=== PATIENT | male | born 1945 | race Caucasian/White ===

== ENCOUNTER 2021-06-13 19:11 | Emergency (ER) | payer MEDICARE ==
[~2021-06-13] VITALS: Ht 190.5 cm; Wt 91.9 kg
--- NOTE | 2021-06-13 19:24 | PHYS DOC ---
Adult General Chief Complaint Chief Complaint: URINARY RETENTION HPI HPI Patient is a 75-year-old male who presents with a chief complaint of combination urinary retention and hematuria. States that he had a cystoscopy today in his urologist office to evaluate his bladder as his prostate is also enlarged. States that he got home at about 4 PM, was able to urinate and there was some blood in there. States that after that urination he feels the urge to urinate and is having suprapubic pain, 6 out of 10. States that he called his urologist and was directed to the emergency department for a Angel catheter insertion. Review of Systems Review of Systems Review of systems otherwise unremarkable except noted in HPI Physical Exam Physical Exam Constitutional: Well developed, well nourished, no acute distress, non-toxic appearance. [] HENT: Normocephalic, atraumatic, Eyes: conjunctiva normal, no discharge. [] Neck: Normal range of motion, no tenderness, supple, no stridor. [] Cardiovascular:Heart rate regular rhythm, no murmur [] Lungs & Thorax: Bilateral breath sounds clear to auscultation [] Abdomen: soft, no tenderness, no masses, no pulsatile masses. : [] Skin: Warm, dry, no erythema, no rash. [] Back: no CVA tenderness. [] Extremities: No tenderness, no cyanosis, no clubbing, ROM intact, no edema. [] Neurologic: Alert and oriented X 3, normal motor function, normal sensory function, no focal deficits noted. [] Psychologic: Affect normal, judgement normal, mood normal. [] EKG EKG [] Radiology/Procedures Radiology/Procedures [] Heart Score C/O Chest Pain: No Risk Factors: Risk Factors: DM, Current or recent (<one month) smoker, HTN, HLP, family history of CAD, obesity. Risk Scores: Risk Factors: DM, Current or recent (<one month) smoker, HTN, HLP, family history of CAD, obesity. Course & Med Decision Making Course & Med Decision Making Patient is a 75-year-old male who presents with a chief complaint of combination urinary retention and hematuria Vital signs notable for sinus bradycardia. Physical exam noted above. Given pain medication. Obvious hematuria. No urinalysis obtained as he just had a procedure today and with skew results. Patient states he did not have a urinary tract infection before the procedure. Angel catheter placed in significant amounts of urine/hematuria obtained. Patient continued to make urine. Hemoglobin not concerning. Patient not on blood thinners. Discussed all findings with family. Advised to call urologist in the morning and set up an immediate follow-up for reevaluation. Gave return precautions to the ED. Family grateful, verbalized understanding and agreed with plan of discharge. Dragon Disclaimer Dragon Disclaimer This electronic medical record was generated, in whole or in part, using a voice recognition dictation system. Departure Departure: Impression: Primary Impression: Urinary retention Additional Impression: Hematuria Disposition: HOME / SELF CARE / HOMELESS Condition: IMPROVED Referrals: SHAUNA DELA CRUZ MD (PCP) Patient Instructions: Hematuria, Adult, Urinary Retention, Acute, Male Additional Instructions: Thank you for coming into the emergency department tonight and allowing us to take care of you. Please read all the attached information above. A Angel catheter was placed to allow you to urinate and decrease the chance of kidney damage. You may continue to see some blood in your catheter however as long as you are able to urinate in the bag is filling that is reassuring. Please call your urologist back in the morning first thing to update on ED visit and set up a follow-up as soon as possible, tomorrow preferably for reevaluation and need for continued use of your Angel catheter. Please come back to the emergency department immediately with new or concerning symptoms as discussed. Problem Qualifiers LAN GAINES MD Jun 13, 2021 19:23
[2021-06-13 20:11] LABS: HEMATOCRIT 35.4 % (39.0-53.0); HEMOGLOBIN 11.8 g/dL (13.0-17.5); RED BLOOD COUNT 3.79 x10^6/uL (4.30-5.70); RED CELL DISTRIBUTION WIDTH 14.9 % (11.5-14.5); WHITE BLOOD COUNT 8.9 x10^3/uL (4.0-11.0)
[2021-06-13] MEDS: oxyCODONE/APAP 5/325 1 TAB TABLET PO ONE (20:18)
[2021-06-13 21:25] VITALS: BP 126/78
== END 2021-06-13 21:30 | disposition home or self-care (01) ==
LOC: ER 19:11
DX: R33.9 Retention of urine, unspecified (principal); R31.9 Hematuria, unspecified; R10.30 Lower abdominal pain, unspecified
CPT/HCPCS: 36415; 51702; 85027; 99284-25

== ENCOUNTER 2021-06-14 10:03 | Emergency (ER) | payer MEDICARE ==
[~2021-06-14] VITALS: Ht 190.5 cm; Wt 91.9 kg
--- NOTE | 2021-06-14 11:33 | PHYS DOC ---
Past History Additional Past Medical Histor: right kidney CA, enlarged prostate Past Surgical History: Cancer Surgery Alcohol Use: None General Adult EDM: Chief Complaint: BLOOD IN URINE HPI: HPI: Patient is a 75-year-old male who presents with urinary retention. Patient had a endoscopy done yesterday to look at his bladder due to blood in his urine. Patient was seen in the emergency room last night and had a Angel placed. Patient states "I woke up this morning and there was no urine in the bag". Patient states he had an appointment this morning with his urologist but did not realize that his appointment was in the [place] location. Patient was concerned about not producing urine, and was sent in by urology. Patient did have 300 MLS, bright red urine in his bag on arrival.Patient's denying pain. Review of Systems: Review of Systems: Constitutional: Denies fever or chills Eyes: Denies change in visual acuity HENT: Denies nasal congestion or sore throat Respiratory: Denies cough or shortness of breath Cardiovascular: Denies chest pain or edema GI: Denies abdominal pain, nausea, vomiting, bloody stools or diarrhea : Denies dysuria, reports blood in urine and retention Musculoskeletal: Denies back pain or joint pain Integument: Denies rash Neurologic: Denies headache, focal weakness or sensory changes Endocrine: Denies polyuria or polydipsia Lymphatic: Denies swollen glands Psychiatric: Denies depression or anxiety Allergies: Allergies: Allergies Coded Allergies Type Severity Reaction Last Updated Verified Sulfa (Sulfonamide Antibiotics) Allergy Unknown 06/14/21 Yes ampicillin Allergy Unknown 06/14/21 Yes tetracycline Allergy Unknown 06/14/21 Yes Physical Exam: PE: Constitutional: Well developed, well nourished, no acute distress, non-toxic appearance. [] HENT: Normocephalic, atraumatic, bilateral external ears normal, oropharynx moist, no oral exudates, nose normal. [] Eyes: PERRLA, EOMI, conjunctiva normal, no discharge. [] Neck: Normal range of motion, no tenderness, supple, no stridor. [] Cardiovascular:Heart rate regular rhythm, no murmur [] Lungs & Thorax: Bilateral breath sounds clear to auscultation [] Abdomen: Bowel sounds normal, soft, no tenderness, no masses, no pulsatile masses. [] Skin: Warm, dry, no erythema, no rash. [] Back: No tenderness, no CVA tenderness. [] Extremities: No tenderness, no cyanosis, no clubbing, ROM intact, no edema. [] Neurologic: Alert and oriented X 3, normal motor function, normal sensory function, no focal deficits noted. [] Psychologic: Affect normal, judgement normal, mood normal. [] Current Patient Data: Vital Signs: Vital Signs Date Time Temp Pulse Resp B/P (MAP) Pulse Ox O2 Delivery O2 Flow Rate FiO2 06/14/21 10:05 98.0 59 17 151/94 (113) 97 Room Air EKG: EKG: [] Radiology/Procedures: Radiology/Procedures: [] Heart Score: C/O Chest Pain: No Risk Factors: Risk Factors: DM, Current or recent (<one month) smoker, HTN, HLP, family history of CAD, obesity. Risk Scores: Score 0 - 3: 2.5% MACE over next 6 weeks - Discharge Home Score 4 - 6: 20.3% MACE over next 6 weeks - Admit for Clinical Observation Score 7 - 10: 72.7% MACE over next 6 weeks - Early Invasive Strategies Course & Med Decision Making: Course & Med Decision Making Pertinent Labs and Imaging studies reviewed. (See chart for details) [] 75-year-old male presents with urinary retention. Patient was seen by urology and had procedure done yesterday to evaluate her bladder due to the hematuria. Patient woke up this morning and did not have any urine in his bag. Once patient arrived he did have 300MLS of bloody urine in his leg bag. After bladder scanning the patient showed he was reattaining urine. Catheter was irrigated and some clots were removed which was most likely causing the retention. Urine has continued to drain after clots were removed. Patient's denying pain or any complaints at this time. Patient called and spoke with urologist office and has an appointment for Friday. Patient given return precautions. and patient are both okay with discharge plan. Patient is hemodynamically stable upon disposition. Dragon Disclaimer: Dragon Disclaimer: This electronic medical record was generated, in whole or in part, using a voice recognition dictation system. Departure Departure: Impression: Primary Impression: Urinary retention Disposition: HOME / SELF CARE / HOMELESS Condition: STABLE Referrals: SHAUNA DELA CRUZ MD (PCP) Patient Instructions: Urinary Retention, Acute, Male, [id number] Additional Instructions: You are seen in the emergency room for urinary retention. Your Angel was irrigated which remove the clots that were blocking the urine. Please keep your follow-up appointment with your urologist for further evaluation. Return to the emergency room if you have worsening symptoms or concerns. EMERGENCY DEPARTMENT GENERAL DISCHARGE INSTRUCTIONS Thank you for coming to [facility] (ED) today and trusting us with you care. We trust that you had a positivie experience in our Emergency Department. If you wish to speak to the department management, you may call the director at [phone]. YOUR FOLLOW UP INSTRUCTIONS ARE FOLLOWS: 1. Do you have a private Doctor? If you do not have a private doctor, please ask for a resource list of physicians or clinics that may be able to assist you with follow up care. 2. The Emergency Physician has interpreted your x-rays. The X-Ray specialist will also review them. If there is a change in the findings, you will be notified in 48 hours when at all possible. 3. A lab test or culture has been done, your results will be reviewed and you will be notified if you need a change in treatment. ADDITIONAL INSTRUCTIONS AND INFORMATION: 1. Your care today has been supervised by a physician who is specially trained in emergency care. Many problems require more than one evaluation for a complete diagnosis and treatment. We recommend that you schedule your follow up appointment as recommended to ensure complete treatment of you illness or injury. If you are unable to obtain follow up care and continue to have a problem, or if your condition worsens, we recommend that you return to the ED. 2. We are not able to safely determine your condition over the phone nor are we able to give sound medical advice over the phone. For these safety reasons, if you call for medical advice we will ask you to come to the ED for further evaluation. 3. If you have any questions regarding these discharge instructions please call the ED at [phone]. SAFETY INFORMATION: In the interest of safety, wellness, and injury prevention; we encourage you to wear your sealbelt, if you smoke; quite smoking, and we encourage family to use a protective helmet for bicycling and other sporting events that present an increased risk for head injury. IF YOUR SYMPTOMS WORSEN OR NEW SYMPTOMS DEVELOP, OR YOU HAVE CONCERNS ABOUT YOUR CONDITION; OR IF YOUR CONDITION WORSENS WHILE YOU ARE WAITING FOR YOUR FOLLOW UP APPOINTMENT; EITHER CONTACT YOUR PRIMARY CARE DOCTOR, THE PHYSICIAN WHOSE NAME AND NUMBER YOU WERE GIVEN, OR RETURN TO THE ED IMMEDIATELY. [place] APRN Jun 14, 2021 11:33
[2021-06-14 13:10] VITALS: BP 145/83
== END 2021-06-14 13:21 | disposition home or self-care (01) ==
LOC: ER 10:27
DX: R33.9 Retention of urine, unspecified (principal); Z88.2 Allergy status to sulfonamides; Z88.1 Allergy status to other antibiotic agents
CPT/HCPCS: 99281

== ENCOUNTER 2021-06-19 06:07 | Emergency (ER) | payer MEDICARE ==
[~2021-06-19] VITALS: Ht 190.5 cm; Wt 97.3 kg
[2021-06-19 06:15] VITALS: BP 130/78
--- NOTE | 2021-06-19 06:26 | PHYS DOC ---
Past History Additional Past Medical Histor: right kidney CA, enlarged prostate Past Surgical History: Cancer Surgery Alcohol Use: None General Adult EDM: Chief Complaint: URINARY RETENTION HPI: HPI: 75 yo M PMH HTN, HLD, gout, essential tremors, right kidney CA (in remission s/p R nephrectomy) and BPH (on flomax), presents to the ED with his , (patient consents to his/her/their knowledge and involvement in pts' medical care), complains of no urine output since 2 PM yesterday after his Patino was discontinued w/ urology, Dr. Smith in [place], only "dribbles" of urine. Reports a longstanding history of urinary incontinence for months due to BPH. Patient states he had a cystoscopy on the because of this and was seen on the in the emergency department here, due to hematuria x2 days after the cystoscopy Pt required Patino placement for urinary retention likely 2/2 hematuria. Denies any current hematuria, reports his urine is "clear." Review of Systems: Review of Systems: Constitutional: Denies fever or chills Eyes: Denies change in visual acuity HENT: Denies nasal congestion or sore throat Respiratory: Denies cough or shortness of breath Cardiovascular: Denies chest pain or edema GI: Denies nausea, vomiting, bloody stools or diarrhea : Denies dysuria or flank pain Musculoskeletal: Denies back pain or joint pain or saddle anesthesia Integument: Denies rash or diaphoresis Neurologic: Denies headache, focal weakness or sensory changes Endocrine: Denies polyuria or polydipsia Lymphatic: Denies swollen glands Psychiatric: Denies depression or anxiety Allergies: Allergies: Allergies Coded Allergies Type Severity Reaction Last Updated Verified Sulfa (Sulfonamide Antibiotics) Allergy Unknown 06/14/21 Yes ampicillin Allergy Unknown 06/14/21 Yes tetracycline Allergy Unknown 06/14/21 Yes Physical Exam: PE: Constitutional: Well developed, well nourished, no acute distress, non-toxic appearance. HENT: Normocephalic, atraumatic, Eyes: EOMI, conjunctiva normal, no discharge. Neck: Normal range of motion, supple, Cardiovascular: S1/2 present, rHR -bradycardia (was 59 bpm on 06/14) Lungs & Thorax: Speaking in full sentences, bilateral equal chest rise, no tachypnea or increased work of breathing Abdomen: soft, no tenderness, obese, suprapubic fullness Skin: Warm, dry, no erythema, no rash. [] Back: No tenderness, no CVA tenderness. [] Extremities: No tenderness, no cyanosis, hands tremors at rest, both feet laterally deviated (chronic) Neurologic: Alert and oriented X 3, normal motor function, normal sensory function, no focal deficits noted. [] Psychologic: Affect normal, judgement normal, mood normal. [] EKG: EKG: [] Radiology/Procedures: Radiology/Procedures: []IMAGING REPORT Signed PATIENT: PAM BARRERA ACCOUNT: [id number] : 1945 LOCATION: ER AGE: 75 SEX: M EXAM STATUS: REG ER ORD. PHYSICIAN: ANTONIA CRABTREE DO REASON: urinary retention PROCEDURE: CT ABDOMEN PELVIS WO CONTRAST CT ABDOMEN+PELVIS WO INDICATION: urinary retention EXAM: Noncontrast CT of the abdomen and pelvis. Coronal and sagittal reformatted images were performed. PQRS compliance statement: One or more of the following individualized dose reduction techniques were utili zed for this examination: 1. Automated exposure control 2. Adjustment of the mA and/or kV according to patient size 3. Use of iterative reconstruction technique COMPARISON: None FINDINGS: No free air, free fluid, or fluid collection. Lower chest: Bilateral lower lobe subpleural opacities. Cardiomegaly. Small hiatal hernia. ABDOMEN: Liver: The noncontrast liver is homogeneous in attenuation. Gallbladder and biliary: Cholelithiasis. Normal caliber bile ducts. Spleen: Normal spleen. Pancreas: The noncontrast pancreas is homogeneous in attenuation without peripancreatic inflammatory changes. Adrenal glands: Normal adrenal glands. Kidneys and ureters: Right nephrectomy. No left hydronephrosis. Left renal inferior pole 2 cm simple cyst. GI tract: The stomach is decompressed and poorly evaluated. Normal caliber small bowel and colon. Colonic diverticulosis. Normal appendix. Vascular structures: Normal caliber abdominal aorta. Mild aortoiliac atherosclerotic disease. Lymph nodes: No lymphadenopathy in the abdomen or pelvis. PELVIS: Genitourinary system: Urinary bladder is decompressed by Patino catheter. Enlarged prostate measures 7.4 cm transverse. SKELETAL STRUCTURES AND SOFT TISSUES: Advanced lumbar spondylosis with multilevel moderate to severe spinal canal stenosis and neural foraminal narrowing. 10 mm anterolisthesis at L5-S1 due to bilateral L5 pars defect IMPRESSION: 1. Marked prostatomegaly. Urinary bladder is decompressed by Patino catheter. 2. Bilateral lower lobe subpleural opacities, which could represent subsegmental atelectasis or an infectious process. Electronically signed by: Tamia Lilly MD (06/19/2021 8:12 AM) [id number] DICTATED AND SIGNED BY: TAMIA LILLY MD DATE: 06/19/21805 CC: ANTONIA CRABTREE DO; SHAUNA DELA CRUZ MD ~MTH0 0 Heart Score: C/O Chest Pain: No Risk Factors: Risk Factors: DM, Current or recent (<one month) smoker, HTN, HLP, family history of CAD, obesity. Risk Scores: Score 0 - 3: 2.5% MACE over next 6 weeks - Discharge Home Score 4 - 6: 20.3% MACE over next 6 weeks - Admit for Clinical Observation Score 7 - 10: 72.7% MACE over next 6 weeks - Early Invasive Strategies Course & Med Decision Making: Course & Med Decision Making Pertinent Labs and Imaging studies reviewed. (See chart for details) Concern for urinary retention in the setting of BPH, is already on Flomax. Patient with no trauma, saddle anesthesia or incontinence. CT consistent with enlarged prostate, no obvious obstructive lesion, normal caliber or aorta. Urinalysis with no bacteria, RBC and blood present after patino was placed. Urine was dark with sediment/few blood clots. Pt and ask for a different urology referral, "someone closer, not so far in [place]." Patino placed in ED. Labs does show renal failure and normocytic anemia, no prior baseline comparison. Will refer to nephrology to follow kidney failure. Patient with no back pain, abdominal pain or neurologic deficits. Is calm, in no distress and HD stable. Will discharge home with strict ED return precautions were given for fever, saddle anesthesia, flulike symptoms or intractable nausea/vomiting. Encouraged urgent outpatient follow-up with PMD and urology and nephrology. Life- threatening processes were considered but are low suspicion at this time, given history, physical exam and ED workup. Pt was educated on all prescription medications and adverse effects. All patient's questions were answered and pt was stable at time of discharge. Life/limb-threatening differential includes but is not limited to, trauma, infection, nephrolithiasis, kidney disease, malignancy, obstructive uropathy, BPH, AAA/AVF/aortic dissection, or schistosomiasis. I have spoken with the patient and/or caregivers. I explained the patient's condition, diagnoses and treatment plan based on the information available to me at this time. I have answered the patient and/or caregiver's questions and addressed any concerns. The patient and/or caregivers have a good understanding of patient's diagnosis, condition and treatment plan as can be expected at this point. Vital signs have been stable. Patient's condition is stable and appropriate for discharge from the emergency department. Patient will pursue further outpatient evaluation with primary care physician or other designated or consulting physician as outlined in the discharge instructions. The patient and/or caregivers are agreeable to this plan of care and follow-up instructions have been explained in detail. The patient and/or caregivers have received these instructions in written form and have expressed an understanding of the discharge instructions. The patient and/or caregivers are aware that any significant change of condition or worsening of symptoms should prompt immediate return to this or the closest emergency department or call to 911. Ujogo Disclaimer: Ujogo Disclaimer: This electronic medical record was generated, in whole or in part, using a voice recognition dictation system. Departure Departure: Impression: Primary Impression: Urinary retention Additional Impressions: Renal insufficiency Hematuria Normocytic anemia BPH (benign prostatic hyperplasia) Disposition: HOME / SELF CARE / HOMELESS Condition: STABLE Referrals: SHAUNA DELA CRUZ MD (PCP) Follow up with your pcp in 1-2 days or [facility] [phone] OR [facility]Dr. Bliss [phone] Patient Instructions: Benign Prostatic Hyperplasia, Kidney Failure, Urinary Retention, Acute, Male Additional Instructions: FOLLOW UP WITH UROLOGY: FOR DEFINITIVE MANAGEMENT of urinary retention and benign prostatic hyperplasia [facility] [address] [place] [address] OR [facility] [address] [address] [place] [address] [place] [address] [facility] [place] [address] [place] [address] [facility] [place] [address] [place] [address] FOLLOW UP WITH NEPHROLOGY: FOR DEFINITIVE MANAGEMENT of kidney disease [facility] , [place] [address] [place] [address] EMERGENCY DEPARTMENT GENERAL DISCHARGE INSTRUCTIONS Thank you for coming to [facility] (ED) today and trusting us with you care. We trust that you had a positivie experience in our Emergency Department. If you wish to speak to the department management, you may call the director at [phone]. YOUR FOLLOW UP INSTRUCTIONS ARE FOLLOWS: 1. Do you have a private Doctor? If you do not have a private doctor, please ask for a resource list of physicians or clinics that may be able to assist you with follow up care. 2. The Emergency Physician has interpreted your x-rays. The X-Ray specialist will also review them. If there is a change in the findings, you will be notified in 48 hours when at all possible. 3. A lab test or culture has been done, your results will be reviewed and you will be notified if you need a change in treatment. ADDITIONAL INSTRUCTIONS AND INFORMATION: 1. Your care today has been supervised by a physician who is specially trained in emergency care. Many problems require more than one evaluation for a complete diagnosis and treatment. We recommend that you schedule your follow up appointment as recommended to ensure complete treatment of you illness or injury. If you are unable to obtain follow up care and continue to have a problem, or if your condition worsens, we recommend that you return to the ED. 2. We are not able to safely determine your condition over the phone nor are we able to give sound medical advice over the phone. For these safety reasons, if you call for medical advice we will ask you to come to the ED for further evaluation. 3. If you have any questions regarding these discharge instructions please call the ED at [phone]. SAFETY INFORMATION: In the interest of safety, wellness, and injury prevention; we encourage you to wear your sealbelt, if you smoke; quite smoking, and we encourage family to use a pro tective helmet for bicycling and other sporting events that present an increased risk for head injury. IF YOUR SYMPTOMS WORSEN OR NEW SYMPTOMS DEVELOP, OR YOU HAVE CONCERNS ABOUT YOUR CONDITION; OR IF YOUR CONDITION WORSENS WHILE YOU ARE WAITING FOR YOUR FOLLOW UP APPOINTMENT; EITHER CONTACT YOUR PRIMARY CARE DOCTOR, THE PHYSICIAN WHOSE NAME AND NUMBER YOU WERE GIVEN, OR RETURN TO THE ED IMMEDIATELY. [facility] DO Jun 19, 2021 06:26
[2021-06-19 07:00] LABS: BASO # 0.1 x10^3/uL (0.0-0.2); BASO % 1 % (0-3); EOS # 0.7 x10^3/uL (0.0-0.7); EOS % 9 % (0-3); HEMATOCRIT 32.1 % (39.0-53.0); HEMOGLOBIN 10.7 g/dL (13.0-17.5); LYMPH # 0.9 x10^3/uL (1.0-4.8); LYMPH % 11 % (24-48); MEAN CORPUSCULAR HEMOGLOBIN 31 pg (25-35); MEAN CORPUSCULAR HGB CONC 34 g/dL (31-37); MEAN CORPUSCULAR VOLUME 93 fL (79-100); MONO # 0.8 x10^3/uL (0.0-1.1); MONO % 11 % (0-9); NEUT # 5.3 x10^3uL (1.8-7.7); NEUT % 68 % (31-73); PLATELET COUNT 168 x10^3/uL (140-400); RED BLOOD COUNT 3.43 x10^6/uL (4.30-5.70); RED CELL DISTRIBUTION WIDTH 15.1 % (11.5-14.5); WHITE BLOOD COUNT 7.8 x10^3/uL (4.0-11.0)
[2021-06-19] MEDS ORDERED: CONTRAST GIVEN. MC PRN (07:00)
[2021-06-19] MEDS ORDERED: IOHEXOL 300 MG/ML 75 ML VIAL. IV ONE (07:00)
[2021-06-19 07:10] LABS: CALCIUM 9.2 mg/dL (8.5-10.1); CREATININE 1.9 mg/dL (0.7-1.3); GFR 34.8; POTASSIUM 4.9 mmol/L (3.5-5.1)
[2021-06-19 07:16] LABS: ALBUMIN/GLOBULIN RATIO 0.8 (1.0-1.7); TOTAL BILIRUBIN 0.4 mg/dL (0.2-1.0)
[2021-06-19 07:35] LABS: BACTERIA,URINE 0 /HPF (0-FEW); BILIRUBIN,URINE NEG (NEG); CLARITY,URINE HAZY; COLOR,URINE YELLOW; GLUCOSE,URINE NEG (NEG); NITRITE,URINE NEG (NEG); RBC,URINE >40 /HPF (0-2); SQUAMOUS EPITHELIAL CELL,UR FEW /LPF; UROBILINOGEN,URINE 0.2 mg/dL (0.2 mg/dL)
--- NOTE | 2021-06-19 08:15 | RAD ---
CT ABDOMEN+PELVIS WO INDICATION: urinary retention EXAM: Noncontrast CT of the abdomen and pelvis. Coronal and sagittal reformatted images were perform ed. PQRS compliance statement: One or more of the following individualized dose reduction techniques were utilized for this examinat ion: 1. Automated exposure control 2. Adjustment of the mA and/or kV according to patient size 3. Use of iterative reconstruction technique COMPARISON: None FINDINGS: No free air, free fluid, or fluid collection. Lower chest: Bilateral lower lobe subpleural opacities. Cardiomegaly. Small hiatal hernia. ABDOMEN: Liver: The noncontrast liver is homogeneous in attenuation. Gallbladder and biliary: Cholelithiasis. Normal caliber bile ducts. Spleen: Normal spleen. Pancreas: The noncontrast pancreas is homogeneous in attenuation without peripancreatic inflammatory changes. Adrenal glands: Normal adrenal glands. Kidneys and ureters: Right nephrectomy. No left hydronephrosis. Left renal inferior pole 2 cm simple cyst. GI tract: The stomach is decompressed and poorly evaluated. Normal caliber small bowel and colon. Col onic diverticulosis. Normal appendix. Vascular structures: Normal caliber abdominal aorta. Mild aortoiliac atherosclerotic disease. Lymph nodes: No lymphadenopathy in the abdomen or pelvis. PELVIS: Genitourinary system: Urinary bladder is decompressed by Angel catheter. Enlarged prostate measures 7 .4 cm transverse. SKELETAL STRUCTURES AND SOFT TISSUES: Advanced lumbar spondylosis with multilevel moderate to severe spinal canal stenosis and neural foraminal narrowing. 10 mm anterolisthesis at L5-S1 due to bilateral L5 pars defect IMPRESSION: 1. Marked prostatomegaly. Urinary bladder is decompressed by Angel catheter. 2. Bilateral lower lobe subpleural opacities, which could represent subsegmental atelectasis or an in fectious process. Electronically signed by: Singh Lilly MD (06/19/2021 8:12 AM) [id number]
== END 2021-06-19 09:11 | disposition home or self-care (01) ==
LOC: ER 06:07
DX: N40.1 Benign prostatic hyperplasia with lower urinary tract symptoms (principal); R33.8 Other retention of urine; N28.9 Disorder of kidney and ureter, unspecified; R31.9 Hematuria, unspecified; D64.9 Anemia, unspecified; Z88.2 Allergy status to sulfonamides; Z88.1 Allergy status to other antibiotic agents
CPT/HCPCS: 36415; 51702; 74176; 80053; 81001; 85025; 99285-25

== ENCOUNTER 2021-06-27 18:40 | Emergency (ER) | payer MEDICARE ==
[~2021-06-27] VITALS: Ht 190.5 cm; Wt 97.3 kg
--- NOTE | 2021-06-27 18:46 | PHYS DOC ---
Past History Past Medical History: CAD, CHF, UTI Additional Past Medical Histor: right kidney CA, enlarged prostate Past Surgical History: Cancer Surgery Alcohol Use: None General Adult HPI: HPI: "I am just getting more weak I can even get up to go to the bathroom..." Patient is a 75 year old MALE who presents with complaints of increased weakness and recent UTI. Patient does have a Angel for urinary retention patient normally follows Dr. Dela Cruz. Recently seen Dr. Dela Cruz and started on treatment for UTI. Patient today is grown more weak. Patient denies any falls. No history immunosuppression. No history of travel history. No specific ill contacts. Patient prior this past week has been ambulatory. Patient has been compliant with his meds for a urinary tract infection. Review of Systems: Review of Systems: Constitutional: Denies fever or chills Eyes: Denies change in visual acuity HENT: Denies nasal congestion or sore throat Respiratory: Denies cough or shortness of breath Cardiovascular: Denies chest pain or edema GI: Denies abdominal pain, nausea, vomiting, bloody stools or diarrhea : History of dysuria and Angel Musculoskeletal: Complains of generalized weakness Integument: Denies rash Neurologic: Denies headache, focal weakness or sensory changes Endocrine: Denies polyuria or polydipsia Lymphatic: Denies swollen glands Psychiatric: Denies depression or anxiety Family History: Family History: Noncontributory presentation Current Medications: Current Meds: See nursing for home meds Allergies: Allergies: Allergies Coded Allergies Type Severity Reaction Last Updated Verified Sulfa (Sulfonamide Antibiotics) Allergy Unknown 06/14/21 Yes ampicillin Allergy Unknown 06/14/21 Yes tetracycline Allergy Unknown 06/14/21 Yes Physical Exam: PE: Constitutional: Moderate acute distress, non-toxic appearance. [] HENT: Normocephalic, atraumatic, bilateral external ears normal, oropharynx moist, no oral exudates, nose normal. [] Eyes: PERRLA, EOMI, conjunctiva normal, no discharge. [] Neck: Normal range of motion, no tenderness, supple, no stridor. [] Cardiovascular: Tachycardia heart rate regular rhythm, no murmur [, PMI to the left Lungs & Thorax: Bilateral breath sounds equal apex scattered wheezes, basilar crackles bilaterally, PMI to left on auscultation [] Abdomen: Bowel sounds normal, soft, no tenderness, no masses, no pulsatile masses. Old surgery scars Skin: Warm, dry, no erythema, no rash. Poor turgor Back: No tenderness, no CVA tenderness. [] Extremities: No tenderness, no cyanosis, no clubbing, moves extremities on request, ankle edema. [] Very weak, unable to even stand and pivot. Neurologic: Alert and oriented X 3, moves extremities on request but that has had obvious weakness needs assistance and transfer to bed, has distal sensory. Decreased plantar sensation,, no focal deficits but generalized weakness. Psychologic: Affect anxious, judgement normal, mood normal. [] EKG: EKG: My interpretation EKG shows a sinus rhythm at 76 bpm prolonged [place] interval at 785 ms. Incomplete right bundle branch block. Abnormal EKG. But no findings of acute STEMI of contralateral changes. Time of EKG is 1905 hrs. [] Radiology/Procedures: Radiology/Procedures: My interpretation of chest x-ray shows acute cephalization and cardiomegaly. Arthritic changes. Bilateral lower lobe subpleural opacities small hiatal hernia. Overall impression is CHF/pulmonary edema. See formal report when available. Not currently available at time of admission and transfer. [] Heart Score: C/O Chest Pain: No HEART Score for Chest Pain: HEART Score for Chest Pain Response (Comments) Value History Moderately Suspicious 1 ECG Nonspecific Repolarizatio 1 Age > 65 2 Risk Factors 1 or 2 Risk Factors 1 Troponin < Normal Limit 0 Total 5 Risk Factors: Risk Factors: DM, Current or recent (<one month) smoker, HTN, HLP, family history of CAD, obesity. Risk Scores: Score 0 - 3: 2.5% MACE over next 6 weeks - Discharge Home Score 4 - 6: 20.3% MACE over next 6 weeks - Admit for Clinical Observation Score 7 - 10: 72.7% MACE over next 6 weeks - Early Invasive Strategies Course & Med Decision Making: Course & Med Decision Making Pertinent Labs and Imaging studies reviewed. (See chart for details) Discussed presentation, testing and tx. plan with Dr. Manuel- Transfer to [facility]- No beds at [place]- lack of nursing to open more beds. 4/1Coverage. Impression: 1. Weakness 2. Renal Insuf. 32 Bun 1.7 Creat. 3. Elevated D-dimer 2.36 4. Elevated AST 83.ALT 81, Alk Phos 148 5. Diastolic heart failure BMP 4,306 6. Recent UTI/ Hematuria- compliant with antibiotica 7. Anemia - Hgb 11.2 [] Jules Disclaimer: Jules Disclaimer: This electronic medical record was generated, in whole or in part, using a voice recognition dictation system. Departure Departure: Referrals: SHAUNA DELA CRUZ MD (PCP) KIRAN MENDIOLA MD Jun 27, 2021 18:46
[2021-06-27] MEDS ORDERED: IV RINGERS SOLUTION,LACTATED 1,000 ML IV SCH (19:00)
[2021-06-27 19:46] LABS: BASO % 1 % (0-3); EOS # 0.1 x10^3/uL (0.0-0.7); EOS % 1 % (0-3); HEMATOCRIT 33.9 % (39.0-53.0); HEMOGLOBIN 11.2 g/dL (13.0-17.5); LYMPH # 0.3 x10^3/uL (1.0-4.8); LYMPH % 5 % (24-48); MEAN CORPUSCULAR HEMOGLOBIN 31 pg (25-35); MEAN CORPUSCULAR HGB CONC 33 g/dL (31-37); MEAN CORPUSCULAR VOLUME 94 fL (79-100); MONO # 0.7 x10^3/uL (0.0-1.1); MONO % 10 % (0-9); NEUT # 5.3 x10^3uL (1.8-7.7); NEUT % 83 % (31-73); PLATELET COUNT 157 x10^3/uL (140-400); RED CELL DISTRIBUTION WIDTH 15.7 % (11.5-14.5); WHITE BLOOD COUNT 6.4 x10^3/uL (4.0-11.0)
[2021-06-27 19:55] LABS: CALCIUM 9.2 mg/dL (8.5-10.1); CREATININE 1.7 mg/dL (0.7-1.3); GFR 39.6; POTASSIUM 4.2 mmol/L (3.5-5.1)
[2021-06-27 20:08] LABS: ALBUMIN 3.2 g/dL (3.4-5.0); DIRECT BILIRUBIN 0.1 mg/dL (0.0-0.2); MAGNESIUM 1.8 mg/dL (1.8-2.4); TOTAL BILIRUBIN 0.3 mg/dL (0.2-1.0); TOTAL PROTEIN 6.9 g/dL (6.4-8.2)
[2021-06-27 20:26] LABS: BACTERIA,URINE MOD /HPF (0-FEW); BILIRUBIN,URINE NEG (NEG); CLARITY,URINE CLOUDY; COLOR,URINE YELLOW; GLUCOSE,URINE NEG (NEG); NITRITE,URINE POS (NEG); RBC,URINE >40 /HPF (0-2); SQUAMOUS EPITHELIAL CELL,UR OCC /LPF; UROBILINOGEN,URINE 0.2 mg/dL (0.2 mg/dL); YEAST,URINE PRESENT /HPF
[2021-06-27] MEDS ORDERED: ENOXAPARIN ** NOTE DOSE ** SYRINGE SQ ONE (20:45)
[2021-06-27] MEDS ORDERED: FUROSEMIDE 40 MG/4 ML VIAL IVP ONE (20:45)
[2021-06-27] MEDS ORDERED: levoFLOXacin 500 MG TABLET PO ONE (21:00)
[2021-06-27 21:30] VITALS: BP 124/63
--- NOTE | 2021-06-27 21:39 | EKG ---
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
[2021-06-27] MEDS ORDERED: oxyCODONE/APAP 5/325 1 TAB TABLET PO ONE (22:00)
--- NOTE | 2021-06-28 00:04 | RAD ---
INDICATION: Reason: dyspnea / Spl. Instructions: / History: COMPARISON: None. FINDINGS: Single view of chest obtained. Enlarged cardiomediastinal silhouette. Degenerative changes the bilateral shoulders. Mild interstitial and groundglass opacities. There is some suspected calcified granulomas. IMPRESSION: * Suspected interstitial and groundglass opacities which could be from mild edema or interstitial in filtrate. * Enlarged cardiomediastinal silhouette. Electronically signed by: Ham Casas MD (06/28/2021 12:01 AM) [id number]
== END 2021-06-27 22:15 | disposition short-term general hospital (02) ==
LOC: ER 18:40
DX: N28.9 Disorder of kidney and ureter, unspecified (principal); R79.1 Abnormal coagulation profile; R79.89 Other specified abnormal findings of blood chemistry; I50.30 Unspecified diastolic (congestive) heart failure; D64.9 Anemia, unspecified; R53.1 Weakness; I25.10 Atherosclerotic heart disease of native coronary artery without angina pectoris; Z87.440 Personal history of urinary (tract) infections; Z20.822 Contact with and (suspected) exposure to COVID-19; Z88.2 Allergy status to sulfonamides; Z88.1 Allergy status to other antibiotic agents
CPT/HCPCS: 36415; 71045; 80048; 80076; 81001; 82550; 83690; 83735; 83880; 84443; 84484; 85025; 85379; 85610; 85730; 87040; 87077; 87086; 87426; 93005; 96361; 96372; 96374; 99285; C9803; J1650; J1940; J7120; U0003

== ENCOUNTER 2021-07-03 23:18 | Emergency (ER) | payer MEDICARE ==
[~2021-07-03] VITALS: Ht 190.5 cm; Wt 97.3 kg
[2021-07-03 23:20] VITALS: BP 155/90
--- NOTE | 2021-07-04 00:04 | PHYS DOC ---
Past History Past Medical History: CAD, CHF, UTI Additional Past Medical Histor: right kidney CA, enlarged prostate (BRITTANY QUEZADA APRN) Past Surgical History: Cancer Surgery (BRITTANY QUEZADA APRN) Alcohol Use: None (BRITTANY QUEZADA APRN) General Adult EDM: Chief Complaint: URINE CATHETER PROBLEM HPI: HPI: Patient is a 75-year-old female who presents to the emergency department for possible catheter obstruction. He states that his Patino catheter has not been draining for the last 8 hours. Patient follows up with Dr. Mcgarry with urology. He has a history of right kidney cancer with a right nephrectomy, BPH. Patient's current Patino was placed on [address] [facility]. His states that he was just discharged yesterday from [facility]. Patient is reporting suprapubic tenderness. He is not currently on any antibiotics. He denies any fevers, nausea or vomiting. (BRITTANY QUEZADA APRN) Review of Systems: Review of Systems: Constitutional: See HPI GI: See HPI : See HPI (BRITTANY QUEZADA APRN) Allergies: Allergies: Allergies Coded Allergies Type Severity Reaction Last Updated Verified Sulfa (Sulfonamide Antibiotics) Allergy Unknown 06/14/21 Yes ampicillin Allergy Unknown 06/14/21 Yes tetracycline Allergy Unknown 06/14/21 Yes (BRITTANY QUEZADA APRN) Physical Exam: PE: Constitutional: Well developed, well nourished, no acute distress, non-toxic appearance. [] HENT: Normocephalic, atraumatic, bilateral external ears normal, oropharynx moist, no oral exudates, nose normal. [] Eyes: PERRL, EOMI, conjunctiva normal, no discharge. [] Neck: Normal range of motion, no stridor Cardiovascular:Heart rate regular rhythm, no murmur [] Lungs & Thorax: Bilateral breath sounds clear to auscultation [] Abdomen: Bowel sounds normal, soft, suprapubic tenderness with palpation, no masses, no pulsatile masses. [] Skin: Warm, dry, no erythema, no rash. [] : Erythema and purulent drainage noted to urethra, no blood noted at urethra Back: Normal range of motion Extremities: No tenderness, no cyanosis, no clubbing, ROM intact, no edema. [] Neurologic: Alert and oriented X 3, normal motor function, normal sensory function, no focal deficits noted. [] Psychologic: Affect normal, judgement normal, mood normal. [] (BRITTANY QUEZADA APRN) PE: Constitutional: Well developed, well nourished, no acute distress, non-toxic appearance HENT: Normocephalic, atraumatic Eyes: Conjunctiva normal, no discharge Neck: Normal range of motion, supple Lungs & Thorax: No respiratory distress, equal chest rise and fall Abdomen: Soft, no tenderness Skin: Warm, dry, no erythema, no rash Extremities: No tenderness, ROM intact, no edema Neurologic: Alert and oriented X 3, no focal deficits noted Psychologic: Affect normal, judgment normal (CORA BAUM DO) EKG: EKG: [] (BRITTANY QUEZADA APRN) Radiology/Procedures: Radiology/Procedures: [] (BRITTANY QUEZADA APRN) Heart Score: C/O Chest Pain: N/A Risk Factors: Risk Factors: DM, Current or recent (<one month) smoker, HTN, HLP, family history of CAD, obesity. Risk Scores: Score 0 - 3: 2.5% MACE over next 6 weeks - Discharge Home Score 4 - 6: 20.3% MACE over next 6 weeks - Admit for Clinical Observation Score 7 - 10: 72.7% MACE over next 6 weeks - Early Invasive Strategies (BRITTANY QUEZADA APRN) Course & Med Decision Making: Course & Med Decision Making Pertinent Labs and Imaging studies reviewed. (See chart for details) [] Patient presents to the emergency department for his Patino catheter not draining. Patient was bladder scanned and it showed 750 mils retained. There is approximately 100 cc of urine in the Patino bag. Patino was removed and a new one was placed, following placement of new patino catheter, there was urine output. Urinalysis and blood work performed as patient was noted to have purulent drainage and excoriation noted to his urethra. Triple antibiotic o intment ordered for patients penis/urethra. Patient has an appointment with Dr. Mcgarry with urology in a couple of weeks to follow up. Urinalysis and blood work pending at this time. I discussed patients case with supervising physician and he will assume patient care at this time. Care transferred at 0033. (BRITTANY QUEZADA APRN) Course & Med Decision Making 0100- Sign out received from Brittany CANO for patient with blocked patino cath. Patino cath replaced with interval drainage. UA with signs of infection. Afebrile. Empiric PO antibiotic provided. Patient stable for discharge with outpatient follow-up with PCP/urology. Discussed findings and plan with patient and spouse, who acknowledge understanding and agreement. (CORA BAUM DO) Dragon Disclaimer: Dragon Disclaimer: This electronic medical record was generated, in whole or in part, using a voice recognition dictation system. (BRITTANY QUEZADA APRN) Departure Departure: Impression: Primary Impression: Obstructed Patino catheter Qualified Codes: T83.091A - Other mechanical complication of indwelling urethral catheter, initial encounter Additional Impression: UTI (urinary tract infection) Qualified Codes: T83.511A - Infection and inflammatory reaction due to indwelling urethral catheter, initial encounter; N39.0 - Urinary tract infection, site not specified Disposition: HOME / SELF CARE / HOMELESS Condition: GOOD Referrals: SHAUNA DELA CRUZ MD (PCP) Patient Instructions: Catheter-Associated Urinary Tract Infection FAQs - BENSON, Patino Catheter Care, Adult Additional Instructions: You were seen in the emergency department for a catheter obstruction. A new catheter was placed and is functioning normally. Please follow up with Dr. Mcgarry with urology as soon as possible, I would advise you to call tomorrow to see if you can get into see him sooner than your scheduled appointment. Scripts Cephalexin (KEFLEX) 500 Mg Capsule 1 CAP PO TID for UTI for 10 Days, #30 CAP Prov: CORA BAUM DO 07/04/21 Attending Signature Attending Signature I have personally interviewed and examined the patient. All charts, labs, and imaging studies were reviewed. I agree with the PA/VALET MANAGER's findings, exam, and plan. (CORA BAUM DO) BRITTANY QUEZADA APRN Jul 04, 2021 00:04 CORA BAUM DO Jul 04, 2021 01:29
[2021-07-04 00:55] LABS: BILIRUBIN,URINE NEG (NEG); CLARITY,URINE HAZY; COLOR,URINE YELLOW; GLUCOSE,URINE NEG (NEG); NITRITE,URINE POS (NEG); RBC,URINE >40 /HPF (0-2); UROBILINOGEN,URINE 0.2 mg/dL (0.2 mg/dL)
[2021-07-04 00:56] LABS: BACTERIA,URINE FEW /HPF (0-FEW)
[2021-07-04] MEDS ORDERED: NEOMY/BACITR/POLYMYXIN OINT PACKET. TP ONE (01:00)
[2021-07-04] MEDS ORDERED: CEPH500C PO (01:26)
[2021-07-04] MEDS ORDERED: CEPHALEXIN 250 MG CAPSULE PO ONE (02:00)
== END 2021-07-04 01:40 | disposition home or self-care (01) ==
LOC: ER 23:18
DX: T83.091A Other mechanical complication of indwelling urethral catheter, initial encounter (principal); T83.511A Infection and inflammatory reaction due to indwelling urethral catheter, initial encounter; N39.0 Urinary tract infection, site not specified
CPT/HCPCS: 51702; 81001; 87077; 87086; 99284

== ENCOUNTER 2021-07-11 00:46 | Emergency (ER) | payer MEDICARE ==
[~2021-07-11] VITALS: Ht 190.5 cm; Wt 97.3 kg
[~2021-07-11 00:46] MED LIST: CEPH500C PO
[2021-07-11 00:50] VITALS: BP 146/99
--- NOTE | 2021-07-11 01:11 | PHYS DOC ---
Past History Past Medical History: CAD, CHF, UTI Additional Past Medical Histor: right kidney CA, enlarged prostate Past Surgical History: Cancer Surgery Alcohol Use: None General Adult EDM: Chief Complaint: urinary retention HPI: HPI: 75-year-old male returns the emergency room with inability to urinate. The patient was recently seen in the ER after having Angel catheter taken out and he was unable to urinate. The ER put in another Angel catheter and the patient went to the urologist today. Urologist attempted to take the catheter out today to see what would happen. The patient has been unable to urinate for the last 12 hours so he came into the ER tonight. Patient has a follow-up appointment with urology next week. He is asking that we reinstall Angel catheter. He has no other complaints this time. He is already on antibiotic for UTI. Review of Systems: Review of Systems: Constitutional: Denies fever or chills Eyes: Denies change in visual acuity HENT: Denies nasal congestion or sore throat Respiratory: Denies cough or shortness of breath Cardiovascular: Denies chest pain or edema GI: Denies abdominal pain, nausea, vomiting, bloody stools or diarrhea : Urinary retention Musculoskeletal: Denies back pain or joint pain Integument: Denies rash Neurologic: Denies headache, focal weakness or sensory changes Endocrine: Denies polyuria or polydipsia Lymphatic: Denies swollen glands Psychiatric: Denies depression or anxiety Allergies: Allergies: Allergies Coded Allergies Type Severity Reaction Last Updated Verified Sulfa (Sulfonamide Antibiotics) Allergy Unknown 06/14/21 Yes ampicillin Allergy Unknown 06/14/21 Yes tetracycline Allergy Unknown 06/14/21 Yes Physical Exam: PE: Constitutional: Well developed, well nourished, no acute distress, non-toxic appearance. [] HENT: Normocephalic, atraumatic, bilateral external ears normal, oropharynx moist, no oral exudates, nose normal. [] Eyes: PERRLA, EOMI, conjunctiva normal, no discharge. [] Neck: Normal range of motion, no tenderness, supple, no stridor. [] Cardiovascular: Heart rate regular rhythm, no murmur [] Lungs & Thorax: Bilateral breath sounds clear to auscultation [] Abdomen: Bowel sounds normal, soft, no tenderness, no masses, no pulsatile masses. [] Skin: Warm, dry, no erythema, no rash. [] Back: No tenderness, no CVA tenderness. [] Extremities: No tenderness, no cyanosis, no clubbing, ROM intact, no edema. [] Neurologic: Alert and oriented X 3, normal motor function, normal sensory function, no focal deficits noted. [] Psychologic: Affect normal, judgement normal, mood normal. : Circumcised, descended testicles, no obvious trauma or malformation. [] EKG: EKG: [] Radiology/Procedures: Radiology/Procedures: [] Heart Score: C/O Chest Pain: N/A Risk Factors: Risk Factors: DM, Current or recent (<one month) smoker, HTN, HLP, family history of CAD, obesity. Risk Scores: Score 0 - 3: 2.5% MACE over next 6 weeks - Discharge Home Score 4 - 6: 20.3% MACE over next 6 weeks - Admit for Clinical Observation Score 7 - 10: 72.7% MACE over next 6 weeks - Early Invasive Strategies Course & Med Decision Making: Course & Med Decision Making Pertinent Labs and Imaging studies reviewed. (See chart for details) The patient has not urinated in 12 hours so we will place a Angel catheter. There was 400 mL of immediate output. It was medium dark in color but no gross blood. Small amount of blood at the urethral meatus. The patient will follow up with urology as previously planned. He is stable for discharge at this time. [] Dragon Disclaimer: Dragon Disclaimer: This electronic medical record was generated, in whole or in part, using a voice recognition dictation system. Departure Departure: Impression: Primary Impression: Urinary retention Disposition: HOME / SELF CARE / HOMELESS Condition: IMPROVED Referrals: SHAUNA DELA CRUZ MD (PCP) Patient Instructions: Angel Catheter Care, Adult KRYS RITTER DO Jul 11, 2021 01:11
[2021-07-11 01:41] LABS: BACTERIA,URINE 0 /HPF (0-FEW); BILIRUBIN,URINE NEG (NEG); CLARITY,URINE CLEAR; COLOR,URINE YELLOW; GLUCOSE,URINE NEG (NEG); NITRITE,URINE NEG (NEG); RBC,URINE >40 /HPF (0-2); UROBILINOGEN,URINE 0.2 mg/dL (0.2 mg/dL)
== END 2021-07-11 01:30 | disposition home or self-care (01) ==
LOC: ER 00:46
DX: R33.9 Retention of urine, unspecified (principal); I25.10 Atherosclerotic heart disease of native coronary artery without angina pectoris; I50.9 Heart failure, unspecified; Z87.440 Personal history of urinary (tract) infections; Z88.2 Allergy status to sulfonamides; Z88.1 Allergy status to other antibiotic agents
CPT/HCPCS: 51702; 81001; 99284

== ENCOUNTER 2021-07-20 23:41 | Emergency (ER) | payer MEDICARE ==
[~2021-07-20] VITALS: Ht 190.5 cm; Wt 97.3 kg
[2021-07-20 23:50] VITALS: BP 155/99
[2021-07-20] MEDS ORDERED: LIDOCAINE 2% TOPICAL JELLY 5GM TUBE. TP ONE (23:56)
--- NOTE | 2021-07-21 00:03 | PHYS DOC ---
Past History Past Medical History: CAD, CHF, UTI Additional Past Medical Histor: right kidney CA, enlarged prostate Past Surgical History: Cancer Surgery Alcohol Use: None General Adult HPI: HPI: Patient is a 75-year-old male coming in requesting Angel catheter placement. Patient has a history of urinary retention. Saw his urologist 3 days ago and had the option of continuing his Angel catheter versus self cath. 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 Patient has been attempting to self cath twice a day but has had difficulty and has had some bleeding with it. Is currently taking antibiotics for urinary tract infection Review of Systems: Review of Systems: All other systems within normal limits except for as noted in the HPI Current Medications: Current Meds: Current Medications Medications (Trade) Dose Ordered Sig/Renzo Start Time Stop Time Status Last Admin Dose Admin Lidocaine HCl (Xylocaine 2% Topical 5gm Tube) 5 luis felipe STK-MED ONCE 07/20/21 23:56 07/20/21 23:57 DC Allergies: Allergies: Allergies Coded Allergies Type Severity Reaction Last Updated Verified Sulfa (Sulfonamide Antibiotics) Allergy Unknown 06/14/21 Yes ampicillin Allergy Unknown 06/14/21 Yes tetracycline Allergy Unknown 06/14/21 Yes Physical Exam: PE: Constitutional: Well developed, well nourished, no acute distress, non-toxic appearance. [] HENT: Normocephalic, atraumatic, bilateral external ears normal, nose normal. [] Eyes: PERRLA, conjunctiva normal, no discharge. [] Neck: No rigidity, supple, no stridor. [] Cardiovascular: Regular rate and rhythm, brisk cap refill [] Lungs & Thorax: Non labored symmetric respirations, no tachypnea or respiratory distress [] Abdomen: Soft, nondistended. Skin: Warm, dry, no erythema, no rash. [] Back: Unremarkable Extremities: No deformities, range of motion grossly intact, no lower extremity edema [] Neurologic: Alert and oriented X 3, no focal deficits noted. [] Psychologic: Affect normal, judgement normal, mood normal. [] EKG: EKG: [] Radiology/Procedures: Radiology/Procedures: [] Heart Score: C/O Chest Pain: No Risk Factors: Risk Factors: DM, Current or recent (<one month) smoker, HTN, HLP, family history of CAD, obesity. Risk Scores: Score 0 - 3: 2.5% MACE over next 6 weeks - Discharge Home Score 4 - 6: 20.3% MACE over next 6 weeks - Admit for Clinical Observation Score 7 - 10: 72.7% MACE over next 6 weeks - Early Invasive Strategies Course & Med Decision Making: Course & Med Decision Making Pertinent Labs and Imaging studies reviewed. (See chart for details) [] Dragon Disclaimer: Dragon Disclaimer: This electronic medical record was generated, in whole or in part, using a voice recognition dictation system. Departure Departure: Impression: Primary Impression: Urinary retention Disposition: HOME / SELF CARE / HOMELESS Condition: STABLE Referrals: SHAUNA DELA CRUZ MD (PCP) Patient Instructions: Angel Catheter Care, Adult LESLYE BARAJAS MD Jul 21, 2021 00:03
== END 2021-07-21 00:17 | disposition home or self-care (01) ==
LOC: ER 23:41
DX: R33.9 Retention of urine, unspecified (principal); Z88.2 Allergy status to sulfonamides; Z88.1 Allergy status to other antibiotic agents
CPT/HCPCS: 51702; 99284-25

== ENCOUNTER 2021-08-15 07:35 | Inpatient (IN) | payer MEDICARE ==
[~2021-08-15] VITALS: Ht 185.4 cm; Wt 89.6 kg
--- NOTE | 2021-08-15 07:59 | PHYS DOC ---
Past History Past Medical History: CAD, CHF, UTI Additional Past Medical Histor: right kidney CA, enlarged prostate Past Surgical History: Cancer Surgery Smoking: Non-smoker Alcohol Use: None Drug Use: None General Adult EDM: Chief Complaint: MECHANICAL FALL HPI: HPI: Patient is a 75-year-old male brought in by EMS from home for generalized weakness and multiple falls. He reports this morning he fell while trying to get up from his scooter to go to the restroom. He is supposed to stay in his scooter, is minimally mobile at baseline. He does not use an ambulatory device when he tries to transition from his scooter to move to other areas. He is not using any ambulatory device and was not holding onto anything when he fell today. EMS reports that he was lying prone on the floor when they arrived. The patient denies hitting his head, denies loss of consciousness. He denies headache. He denies dizziness. He denies chest pain, dyspnea, palpitations. He denies abdominal pain, nausea, vomiting, diarrhea, constipation. He has an indwelling Angel catheter which is draining dark urine. This was replaced within the last few days. He was recently admitted at [facility] on the [place]. He reportedly has been admitted there for prostate surgery as well as for his generalized weakness. He lives at home with his and grandson. He does not have any home health services, PT or OT services per his report. He and his w moni have admittedly been considering rehabilitation services given his progression of weakness and multiple falls over the past several months. He denies any fevers or chills. He reports that his been eating and drinking well. He is overall otherwise a relatively poor historian, he is unable to articulate any details is of his routine medications, he is unable to articulate any details of this recent hospitalization at [facility]. He was just discharged yesterday, he is still wearing his hospital armband at present. He has a chronic wound on his left heel, which has been present for over 6 months. He reportedly has seen his PCP for this. He has a chronic deformity of his left foot and ankle from prior injury and surgery. No acute changes in this regard. Review of Systems: Review of Systems: Constitutional: Denies fever or chills, reports generalized weakness and falls Eyes: Denies acute vision loss HENT: Denies nasal congestion or sore throat Respiratory: Denies cough or shortness of breath Cardiovascular: Denies chest pain or edema GI: Denies abdominal pain, nausea, vomiting, bloody stools or diarrhea : Chronic urinary retention, Angel, dark urine Musculoskeletal: Denies back pain or joint pain Integument: Chronic pressure wound of the left heel Neurologic: Denies headache, dizziness, vertigo. Denies focal weakness. Admits to chronic, generalized weakness. Psychiatric: Denies depression or anxiety Allergies: Allergies: Allergies Coded Allergies Type Severity Reaction Last Updated Verified Sulfa (Sulfonamide Antibiotics) Allergy Unknown 08/15/21 Yes ampicillin Allergy Unknown 08/15/21 Yes tetracycline Allergy Unknown 08/15/21 Yes Physical Exam: PE: Constitutional: Well developed, well nourished, no acute distress, non-toxic appearance. He is frail and chronically ill-appearing. HENT: Normocephalic, atraumatic, bilateral external ears normal, oropharynx moist, no oral exudates, nose normal. Markedly poor dentition, poor oral hygiene. Eyes: PERRL, EOMI, conjunctiva normal, no discharge. Sclera are clear, anicteric. No nystagmus. Neck: Normal range of motion, no tenderness, supple, no stridor. Trachea is midline. No JVD. No midline tenderness or step-offs. Cardiovascular:Heart rate regular rhythm, loud systolic murmur noted. +2 radial and +2 dorsalis pedis pulses noted bilaterally. Lungs & Thorax: Bilateral breath sounds clear to auscultation, no rales, rhon chi or wheezes. No stridor. Equal chest rise. No evidence of distress. Abdomen: Abdomen soft, obese, nondistended, nontender to palpation. No palpable pulsatile mass. No palpable organomegaly. No evidence of abdominal ecchymoses or abrasions noted. Normal bowel sounds noted. Skin: Warm, dry. He has a round ulcer on his left heel, minimal drainage. Minimal surrounding erythema around the edge of the wound. No significant soft tissue swelling no significant induration, warmth, no purulent drainage, no tenderness. Back: No deformity. Extremities: Bilateral lower extremity atrophy is noted. No lower extremity edema noted. No calf tenderness noted. He has a chronic deformity of his left ankle and foot, with valgus deformity, round ulcer of the left heel, as noted above. No tenderness palpated. No palpable crepitus or step-offs. No acute deformity noted. Pelvis is stable. Neurologic: Alert and oriented X 3, no facial asymmetry. Speech is clear and fluent. He moves all 4 extremities equally. He follows commands. Psychologic: Affect is flat. He is cooperative. EKG: EKG: EKG is interpreted at 0820 Rhythm is sinus Rate is 71 bpm MO 228 ms [place] is left No STEMI Radiology/Procedures: Radiology/Procedures: IMAGING REPORT Signed PATIENT: PAM BARRERA ACCOUNT: [id number] : 1945 LOCATION: ER AGE: 75 SEX: M EXAM STATUS: REG ER ORD. PHYSICIAN: ROMAN GARCIA DO REASON: weakness PROCEDURE: PORTABLE CHEST 1V XR CHEST 1V 08/15/2021 7:53 AM INDICATION: Weakness COMPARISON: 06/27/2021 TECHNIQUE: Portable frontal view of the chest is provided. FINDINGS: The cardiomediastinal silhouette is similar in appearance. There is similar patchy airspace disease at the medial left lung base. There are no significant pleural effusions. There is no pulmonary vascular con gestion. No pneumothorax. No suspicious osseous abnormality. IMPRESSION: Persistent patchy interstitial and alveolar airspace disease at the left lung base may represent subsegmental atelectasis or scarring. No new airspace consolidation. No new pulmonary vascular congestion. Stable right hilar prominence which may or percent prominent pulmonary vasculature versus lymphadenopathy. Electronically signed by: Reg Silveira MD (08/15/2021 8:29 AM) [id number] DICTATED AND SIGNED BY: REG SILVEIRA MD DATE: 08/15/21827 CC: ROMAN GARCIA DO; SHAUNA DELA CRUZ MD ~MTH0 0 IMAGING REPORT Signed PATIENT: PAM BARRERA ACCOUNT: [id number] : 1945 LOCATION: ER AGE: 75 SEX: M EXAM STATUS: REG ER ORD. PHYSICIAN: ROMAN GARCIA DO REASON: weakness, left pressure wound on heel, best images obtained PROCEDURE: FOOT LEFT 3V XR FOOT_LEFT 3 VIEWS 08/15/2021 7:53 AM INDICATION: Weakness. Left pressure wound on heel. COMPARISON: None available. TECHNIQUE: 3 views of the left foot, limited by positioning secondary to cl inical status. FINDINGS/ IMPRESSION: 1. There is irregularity of the skin surface along the heel without significant subcutaneous gas. No adjacent osseous erosion or periosteal new bone formation. 2. Severe remodeling identified at the talonavicular joint with severe osteoarthrosis. Moderate osteoarthrosis of the talonavicular and calcaneocuboid joints. Moderate to advanced osteoarthrosis of the first tarsometatarsal joint. No acute fracture or dislocation. 3. There is a fractured screw extending from the fibula to the tibia. No lucency surrounding the hardware. Electronically signed by: Reg Silveira MD (08/15/2021 8:30 AM) [id number] DICTATED AND SIGNED BY: REG SILVEIRA MD DATE: 08/15/21828 CC: ROMAN GARCIA DO; SHAUNA DELA CRUZ MD ~MTH0 0 IMAGING REPORT Signed PATIENT: PAM BARRERA ACCOUNT: [id number] : 1945 LOCATION: ER AGE: 75 SEX: M EXAM STATUS: REG ER ORD. PHYSICIAN: ROMAN GARCIA DO REASON: fall PROCEDURE: CT HEAD AND CERVICAL SPINE WO EXAM: CT head and cervical spine without contrast INDICATION: Fall COMPARISON: CT head 12/09/2008 TECHNIQUE: Axial CT imaging through the head and cervical spine without intravenous contrast. Sagittal and coronal reformats were obtained. One or more of the following individualized dose reduction techniques were utilized for this examination: 1. Automated exposure control 2. Adjustment of the mA and/or kV according to patient size 3. Use of iterative reconstruction technique. FINDINGS: CT head: There is no intracranial hemorrhage. Ventricles and sulci are moderately enlarged. There is a cavum septum pellucidum. There is mild periventricular and patchy deep and subcortical white matter hypoattenuation. Multiple old small lacunar infarcts in the basal ganglia. Mild mucosal thickening in the sphenoid sinuses and ethmoid air cells. Remaining paranasal sinuses and mastoid air cells are clear. There are surgical changes of the globes. The calvarium is intact. The right parotid gland is atrophic. CT cervical spine: There is no acute fracture. Alignment is normal. There is straightening of the cervical spine. Severe disc space narrowing from C3-C4 to C7-T1 with degenerative endplate changes and anterior and posterior osteophytes. Multilevel moderate to severe facet arthrosis. There is severe right and moderate left foraminal narrowing at C3-C4. Severe left and moderate foraminal narrowing at C4-C5. Moderate to severe left foraminal narrowing at C5-C6. Milder foraminal narrowing at other levels. There are disc osteophyte complexes throughout the cervical spine resulting in at least moderate canal narrowing at C6-C7, and mild canal narrowing at other levels. There is pannus formation about the dens. Prevertebral soft tissues is normal. There are calcifications in the carotid arteries. The right thyroid lobe is prominent. Left thyroid lobe is atrophic or absent. IMPRESSION: 1. No acute intracranial abnormality. 2. Moderate cerebral volume loss and mild chronic microvascular ischemic changes. Multiple old small lacunar infarcts in the basal ganglia. 3. No acute osseous abnormality of the cervical spine. 4. Severe multilevel degenerative disc disease and facet arthrosis, as described. Electronically signed by: Tegan Santo MD (08/15/2021 8:45 AM) [id number] DICTATED AND SIGNED BY: TEGAN SANTO MD DATE: 08/15/21832 CC: ROMAN GARCIA DO; SHAUNA DELA CRUZ MD ~MTH0 0 Heart Score: C/O Chest Pain: No Risk Factors: Risk Factors: DM, Current or recent (<one month) smoker, HTN, HLP, family history of CAD, obesity. Risk Scores: Score 0 - 3: 2.5% MACE over next 6 weeks - Discharge Home Score 4 - 6: 20.3% MACE over next 6 weeks - Admit for Clinical Observation Score 7 - 10: 72.7% MACE over next 6 weeks - Early Invasive Strategies Course & Med Decision Making: Course & Med Decision Making Pertinent Labs and Imaging studies reviewed. (See chart for details) IVF normal saline bolus is given. Blood cultures obtained. IV Rocephin given empirically for UTI. He has been resting comfortably. He denies any pain or discomfort. I contacted Dr. Escalante initially consultation for admission. He was not receptive to a "social admit." The patient requested to be transferred to [facility]. I had initially spoken with Dr. Valadez there, and I explained the patient's condition. He recommended contacting [facility] given the fact that he was just there for a urologic procedure. There are no urology services available at [facility]. I contacted [facility], and ultimately [facility] had no available beds for him. I contacted Dr. Valadez again, who gladly accepted the patient for admission to [place]. The patient has remained stable, without complaint. He is comfortable with the plan for transfer and ultimately for placement. Received a phone call back from the nursing administration at [facility], and the CNO and powerhouse oiler are now refusing the patient for admission/transfer there. I recontacted Dr. Escalante, I explained the situation. He does finally agree to admit the patient here. I discussed this again with the patient, I contacted the patient's and updated her as well. Jules Disclaimer: Jules Disclaimer: This electronic medical record was generated, in whole or in part, using a voice recognition dictation system. Departure Departure: Impression: Primary Impression: Generalized weakness Additional Impressions: Multiple falls Failure to thrive Qualified Codes: R62.7 - Adult failure to thrive Ulcer of left foot Qualified Codes: L97.529 - Non-pressure chronic ulcer of other part of left foot with unspecified severity Urinary retention Indwelling Angel catheter present Urinary tract infection Qualified Codes: T83.511D - Infection and inflammatory reaction due to indwelling urethral catheter, subsequent encounter; N39.0 - Urinary tract infection, site not specified Disposition: ADMITTED INPATIENT Admitting Physician: Adrian Escalante Condition: STABLE Referrals: SHAUNA DELA CRUZ MD (PCP) ROMAN GARCIA DO Aug 15, 2021 07:59
[2021-08-15 08:19] LABS: BASO % 0 % (0-3); EOS # 0.1 x10^3/uL (0.0-0.7); EOS % 1 % (0-3); HEMATOCRIT 33.4 % (39.0-53.0); HEMOGLOBIN 11.1 g/dL (13.0-17.5); LYMPH # 0.9 x10^3/uL (1.0-4.8); LYMPH % 8 % (24-48); MEAN CORPUSCULAR HEMOGLOBIN 31 pg (25-35); MEAN CORPUSCULAR HGB CONC 33 g/dL (31-37); MEAN CORPUSCULAR VOLUME 92 fL (79-100); MONO # 1.3 x10^3/uL (0.0-1.1); MONO % 11 % (0-9); NEUT # 9.2 x10^3uL (1.8-7.7); NEUT % 79 % (31-73); PLATELET COUNT 143 x10^3/uL (140-400); RED BLOOD COUNT 3.65 x10^6/uL (4.30-5.70); WHITE BLOOD COUNT 11.6 x10^3/uL (4.0-11.0)
--- NOTE | 2021-08-15 08:23 | EKG ---
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
[2021-08-15 08:24] LABS: CALCIUM 8.6 mg/dL (8.5-10.1); GFR 32.8; POTASSIUM 4.1 mmol/L (3.5-5.1)
[2021-08-15 08:31] LABS: ALBUMIN/GLOBULIN RATIO 0.8 (1.0-1.7); MAGNESIUM 1.8 mg/dL (1.8-2.4); PHOSPHORUS 3.4 mg/dL (2.6-4.7); TOTAL BILIRUBIN 0.6 mg/dL (0.2-1.0)
--- NOTE | 2021-08-15 08:31 | RAD ---
XR CHEST 1V 08/15/2021 7:53 AM INDICATION: Weakness COMPARISON: 06/27/2021 TECHNIQUE: Portable frontal view of the chest is provided. FINDINGS: The cardiomediastinal silhouette is similar in appearance. There is similar patchy airspace disease a t the medial left lung base. There are no significant pleural effusions. There is no pulmonary vascular congestion. No pneumothora x. No suspicious osseous abnormality. IMPRESSION: Persistent patchy interstitial and alveolar airspace disease at the left lung base may represent subs egmental atelectasis or scarring. No new airspace consolidation. No new pulmonary vascular congestion . Stable right hilar prominence which may or percent prominent pulmonary vasculature versus lymphadenop athy. Electronically signed by: Mellisa Gibson MD (08/15/2021 8:29 AM) [id number]
--- NOTE | 2021-08-15 08:33 | RAD ---
XR FOOT_LEFT 3 VIEWS 08/15/2021 7:53 AM INDICATION: Weakness. Left pressure wound on heel. COMPARISON: None available. TECHNIQUE: 3 views of the left foot, limited by positioning secondary to clinical status. FINDINGS/ IMPRESSION: 1. There is irregularity of the skin surface along the heel without significant subcutaneous gas. No adjacent osseous erosion or periosteal new bone formation. 2. Severe remodeling identified at the talonavicular joint with severe osteoarthrosis. Moderate osteo arthrosis of the talonavicular and calcaneocuboid joints. Moderate to advanced osteoarthrosis of the first tarsometatarsal joint. No acute fracture or dislocation. 3. There is a fractured screw extending from the fibula to the tibia. No lucency surrounding the hard diaz. Electronically signed by: Mellisa Gibson MD (08/15/2021 8:30 AM) [id number]
--- NOTE | 2021-08-15 08:47 | RAD ---
EXAM: CT head and cervical spine without contrast INDICATION: Fall COMPARISON: CT head 12/09/2008 TECHNIQUE: Axial CT imaging through the head and cervical spine without intravenous contrast. Sagitta l and coronal reformats were obtained. One or more of the following individualized dose reduction techniques were utilized for this examinat ion: 1. Automated exposure control 2. Adjustment of the mA and/or kV according to patient size 3. Use of iterative reconstruction technique. FINDINGS: CT head: There is no intracranial hemorrhage. Ventricles and sulci are moderately enlarged. There is a cavum s eptum pellucidum. There is mild periventricular and patchy deep and subcortical white matter hypoatte nuation. Multiple old small lacunar infarcts in the basal ganglia. Mild mucosal thickening in the sph enoid sinuses and ethmoid air cells. Remaining paranasal sinuses and mastoid air cells are clear. The re are surgical changes of the globes. The calvarium is intact. The right parotid gland is atrophic. CT cervical spine: There is no acute fracture. Alignment is normal. There is straightening of the cervical spine. Severe disc space narrowing from C3-C4 to C7-T1 with degenerative endplate changes and anterior and posteri or osteophytes. Multilevel moderate to severe facet arthrosis. There is severe right and moderate lef t foraminal narrowing at C3-C4. Severe left and moderate foraminal narrowing at C4-C5. Moderate to se monalisa left foraminal narrowing at C5-C6. Milder foraminal narrowing at other levels. There are disc os teophyte complexes throughout the cervical spine resulting in at least moderate canal narrowing at C6 -C7, and mild canal narrowing at other levels. There is pannus formation about the dens. Prevertebral soft tissues is normal. There are calcifications in the carotid arteries. The right thyroid lobe is prominent. Left thyroid lobe is atrophic or absent. IMPRESSION: 1. No acute intracranial abnormality. 2. Moderate cerebral volume loss and mild chronic microvascular ischemic changes. Multiple old small lacunar infarcts in the basal ganglia. 3. No acute osseous abnormality of the cervical spine. 4. Severe multilevel degenerative disc disease and facet arthrosis, as described. Electronically signed by: Tegan Santo MD (08/15/2021 8:45 AM) [id number]
[2021-08-15] MEDS ORDERED: IV NORMAL SALINE 1,000ML 1,000 ML IV ONE ×2 (10:00→15:00)
[2021-08-15 10:04] LABS: CLARITY,URINE TURBID; COLOR,URINE BROWN; RBC,URINE >40 /HPF (0-2)
[2021-08-15 10:05] LABS: BACTERIA,URINE MANY /HPF (0-FEW); WBC,URINE 20-40 /HPF (0-4)
[2021-08-15] MEDS ORDERED: cefTRIAXone SODIUM 1 GM VIAL ONE (11:49)
[2021-08-15] MEDS ORDERED: IV NORMAL SALINE 50ML 50 ML ONE (11:49)
[2021-08-15] MEDS ORDERED: ACETAMINOPHEN 325 MG TABLET PO PRN (15:00)
[2021-08-15] MEDS ORDERED: ONDANSETRON PF 4 MG/2 ML VIAL. IVP PRN (15:00)
[2021-08-15 16:22] VITALS: BP 133/74
[2021-08-15] MEDS ORDERED: DONE5TAB7 PO (17:27)
[2021-08-15] MEDS ORDERED: LISI20TA18 PO (17:27)
[2021-08-15] MEDS ORDERED: HYDR-2145 PO (17:27)
[2021-08-15] MEDS ORDERED: ATOR40TA59 PO (17:27)
[2021-08-15] MEDS ORDERED: TAMS0.4C97 PO (17:27)
[2021-08-15] MEDS ORDERED: ATEN100T PO (17:27)
[2021-08-15] MEDS ORDERED: PRIM50TA24 PO (17:27)
[2021-08-15] MEDS ORDERED: ALLO300T PO (17:27)
[2021-08-15] MEDS ORDERED: NAPR500T8 PO (17:27)
[2021-08-15] MEDS ORDERED: ESCITALOPRAM OX10 MG PO (17:27)
[2021-08-15] MEDS ORDERED: GABA-586 PO (17:27)
[2021-08-15] MEDS ORDERED: FINA5TAB4 PO (17:27)
[2021-08-15] MEDS ORDERED: IV NORMAL SALINE 1,000ML 1,000 ML IV SCH (17:45)
[2021-08-15 18:51] VITALS: BP 143/78
[2021-08-15] MEDS ORDERED: PRIMIDONE 50 MG TABLET PO SCH (21:00)
[2021-08-15] MEDS: TEMAZEPAM 15 MG CAPSULE PO PRN (21:51)
[2021-08-16 05:00] VITALS: BP 136/77
[2021-08-16 06:19] LABS: CALCIUM 7.9 mg/dL (8.5-10.1); CREATININE 1.6 mg/dL (0.7-1.3); GFR 42.5; POTASSIUM 4.1 mmol/L (3.5-5.1)
[2021-08-16] MEDS: ALLOPURINOL 300 MG TABLET. PO SCH (08:25)
[2021-08-16] MEDS: TAMSULOSIN 0.4 MG CAP.ER.24H. PO SCH (08:25)
[2021-08-16] MEDS: FINASTERIDE 5 MG TABLET. PO SCH (08:25)
[2021-08-16] MEDS: ATENOLOL 50 MG TABLET PO SCH (08:26)
[2021-08-16] MEDS: DONEPEZIL HCL 5 MG TABLET. PO SCH (08:26)
[2021-08-16] MEDS: CITALOPRAM 20 MG TABLET. PO SCH (08:26)
--- NOTE | 2021-08-16 10:15 | HP ---
DATE OF SERVICE: 08/16/2021 ADMIT DATE: 08/15/2021 ATTENDING PHYSICIAN: Dr. Escalante. CHIEF COMPLAINT: Weakness and falls. 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 He has had multiple falls. He recently had prostate surgery at [facility] by his urologist. He had what appears to be a TUR. He also has a Angel catheter in place for drainage. I suspect he may have a systemic inflammatory response syndrome. With recent procedures, cultures were drawn. He was started on intravenous antibiotics. He has fallen. His strength is fluctuating. He has had chronic degenerative arthritis, but he also is weak where he cannot pick himself up. He is contemplating rehab at this time. I had a long discussion with him. PAST MEDICAL HISTORY: Significant for kidney cancer. He had a right nephrectomy in 2010. He has had prostatitis with recent surgery. He also has essential hypertension. He is not diabetic. ALLERGIES: He has several allergies including AMPICILLIN, TETRACYCLINE, and SULFA DRUGS. CURRENT MEDICATIONS: Reviewed. He takes allopurinol, atenolol, Lipitor, cephalexin, Keflex, Aricept, Lexapro, finasteride, Neurontin, hydrochlorothiazide, lisinopril, naproxen, Mysoline and Flomax. SOCIAL HISTORY: He used to be a smoker many years ago. 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 He lives with his . FAMILY HISTORY: Noncontributory. Father of complications of old age in 80s. Mom of heart disease at an unknown age. REVIEW OF SYSTEMS: Significant for the recent prostate surgery. His cancer surgery with nephrectomy was 11 years ago. He has no recent COVID exposure. All other systems reviewed and determined to be negative. PHYSICAL EXAMINATION: GENERAL: When I saw him, this is a pleasant elderly gentleman who was very alert and oriented. VITAL SIGNS: Initial vital signs showed a blood pressure of 136/77 mmHg, oxygen saturation 93% on room air. He was afebrile. Pulse 64 and regular. HEENT: Head is without trauma. Pupils are reactive. Sclerae nonicteric. Oropharynx clear. NECK: Supple. No bruits. LUNGS: Clear. CARDIOVASCULAR: Showed regular heart tones. No gallops. ABDOMEN: Soft. EXTREMITIES: Without edema. NEUROLOGIC: Function is focally intact. Strength in his lower extremities is 3+/5 and 4+/5 respectively. SKIN: Warm and dry. He is nonambulatory at this time. LABORATORY STUDIES: His hemoglobin was 11.1 g/dL, white count 11,600. Creatinine is 2.0, repeated with hydration down to 1.6 mg%, which is appropriate for his solitary kidney. He has had a previous right nephrectomy. Potassium is 4.1 mEq, BUN 38. The obligatory CT of the head showed moderate cerebral volume loss. No acute strokes or bleeds identified. ASSESSMENT: 1. A 75-year-old gentleman with a recent prostate surgery. He has symptoms consistent with systemic inflammatory response syndrome. 2. Prostatitis. 3. History of kidney cancer with nephrectomy 11 years ago. 4. Profound peripheral neuropathy, degenerative arthritis. 5. Frequent mechanical falls. 6. Essential hypertension. PLAN: 1. Admit to the inpatient unit. 2. I will ask for formal Neurology consultation. 3. Physical therapy to see the patient. 4. He is agreeable to go to rehabilitation. 5. Continue home meds. KEVIN/MERYL DR: Gabby TID: [id number] CC: Jonny Jimenez MD
[2021-08-16 10:57] VITALS: BP 129/70
[2021-08-16] MEDS ORDERED: LIDOCAINE 2% JELLY 6ML IN APPLICATOR. MM PRN (15:00)
[2021-08-16 15:18] VITALS: BP 125/67
--- NOTE | 2021-08-16 16:34 | CONS ---
NEURO CONSULT INITIAL REFERRING PHYSICIAN: Dr. Escalante. REASON FOR CONSULTATION: Frequent falls. HISTORY OF PRESENT ILLNESS: This is a 75-year-old right-handed male who was admitted through Emergency Room after he presented with chief complaints of generalized weakness and frequent falls. The patient stated he woke up this morning and fell while trying to get up from his scooter to go to the restroom. He has been progressively weak in the last 2 years, but the symptoms have worsened recently. He fell at least 3 times last month and he related that to unsteady gait and loss of balance. He denies lower back pain, numbness in the lower extremities. He denies headaches, visual disturbances, chest pain, shortness of breath or palpitation, dysarthria or dysphagia. Apparently, he underwent a TURP due to difficulty urination and enlarged prostate. He had indwelling catheter. He denies any recent fever or chills. He also complains of memory loss and being forgetful. He was discharged from [facility] after he underwent a TURP 3 days ago. 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 PAST SURGICAL HISTORY: Positive for right nephrectomy due to kidney cancer and TURP. CURRENT HOME MEDICATIONS: Includes Tylenol, allopurinol, atenolol, donepezil, finasteride, primidone, tamsulosin, and temazepam. ALLERGIES: SULFA ANTIBIOTICS, AMPICILLIN AND TETRACYCLINE. FAMILY HISTORY: Noncontributory. SOCIAL HISTORY: The patient lives with his . He denies smoking, alcohol drinking or illicit drug use. PHYSICAL EXAMINATION: GENERAL: Well-developed, well-nourished male in no acute distress. He weighs 91.4 kilos. VITAL SIGNS: Blood pressure 129/70, respiratory rate 18, pulse 60 and regular, temperature 98.9, oxygen saturation 94% on room air. HEENT: Normocephalic, atraumatic. Otherwise unremarkable. NECK: Supple, negative for carotid bruit, lymphadenopathy or thyromegaly. LUNGS: Clear to A and P. CARDIOVASCULAR: Regular rate and rhythm, normal S1, S2. There is a 3/6 systolic murmur radiating to the neck. ABDOMEN: Soft. Bowel sounds positive. EXTREMITIES: Negative for cyanosis, clubbing or pedal edema. NEUROLOGIC: Mental status: The patient is alert and oriented x 2. The speech is fluent. There is no language dysfunction. Memory, judgment and abstracting thinking are fair. The patient denies hallucination or delusion. Cranial nerves: Visual dickerson are full. The pupils are reactive to light and accommodation. The extraocular movements are intact. There is no nystagmus. There is no facial motor or sensory deficits. Hearing is diminished bilaterally. The palate is elevated symmetrically. Sternocleidomastoid muscles are powerful bilaterally. The patient shrugs his shoulders symmetrically and protrudes his tongue in the midline without fasciculation or atrophy. Motor exam: No focal muscle bulk wasting. The tone is normal. The strength is 4/5 throughout. The patient has mild resting, but more postural and kinetic tremors of the upper extremities. Sensory examination revealed diminished pinprick and light touch senses in stocking distributions. Deep tendon reflexes were symmetric, hypoactive with absent Achilles responses bilaterally. Gait not tested. LABORATORY DATA: CBC revealed white blood cells of 11.6 thousand, hemoglobin 11.1, hematocrit 33.4, platelet count 143,000. Chemistry revealed sodium of 138, potassium 4.1, chloride 104, CO2 of 25, BUN 38, creatinine 1.6, glucose 87, calcium 7.9. Urinalysis is consistent with urinary tract infections. COVID rapid is negative. DIAGNOSTIC DATA: Head CT scan revealed small vessel ischemic changes with bilateral basal ganglia lacunar infarcts. CT of the cervical spine is consistent with degenerative disk disease throughout. Chest x-ray revealed patchy interstitial disease. X-ray of the left foot revealed osteoarthritic changes. IMPRESSION: 1. History of frequent falls, described as impaired balance, probably multifactorial, including a previous stroke in the basal ganglia bilaterally. Peripheral neuropathy in the lower extremity versus lumbosacral radiculopathy. 2. Status post recent TURP with history of prostate enlargement. 3. Multiple medical problems include urinary tract infections, prostatitis, chronic kidney disease, status post right nephrectomy, osteoarthritis of the spine and the bones in the lower extremities. 4. Tremor of the upper extremity, probably represents senile tremor versus essential tremor. RECOMMENDATIONS: 1. We will continue with current management initiated by Dr. Escalante including antibiotics for prostatitis or urinary tract infections. 2. Adjust the dose of primidone to increase it to 100 at bedtime or nightly. 3. The patient should follow up with Dr. Caceres 2 weeks after discharge to arrange for EMG/NCS of the lower extremities and rule out peripheral neuropathy versus entrapment neuropathy or lumbosacral radiculopathy. 4. Aggressive physical therapy as tolerated. YEIMI/KAREN/JAYSON DR: YEIMI/alice TID: [id number]
[2021-08-16 19:55] VITALS: BP 146/80
[2021-08-16] MEDS: LACTOBACILLUS RHAMNOSUS GG 1 CAPSULE. PO SCH (20:57)
[2021-08-16] MEDS: TEMAZEPAM 15 MG CAPSULE PO PRN (20:57)
[2021-08-16] MEDS: PRIMIDONE 50 MG TABLET PO SCH (20:57)
[2021-08-17 06:16] LABS: CALCIUM 7.8 mg/dL (8.5-10.1); CREATININE 1.7 mg/dL (0.7-1.3); GFR 39.6; POTASSIUM 3.9 mmol/L (3.5-5.1)
[2021-08-17 06:17] VITALS: BP 116/68
[2021-08-17] MEDS: LACTOBACILLUS RHAMNOSUS GG 1 CAPSULE. PO SCH ×2 (08:24→20:58)
[2021-08-17] MEDS: CITALOPRAM 20 MG TABLET. PO SCH (08:24)
[2021-08-17] MEDS: ATENOLOL 50 MG TABLET PO SCH (08:24)
[2021-08-17] MEDS: DONEPEZIL HCL 5 MG TABLET. PO SCH (08:24)
[2021-08-17] MEDS: ALLOPURINOL 300 MG TABLET. PO SCH (08:24)
[2021-08-17] MEDS: TAMSULOSIN 0.4 MG CAP.ER.24H. PO SCH (08:24)
[2021-08-17] MEDS: FINASTERIDE 5 MG TABLET. PO SCH (08:25)
[2021-08-17 11:46] VITALS: BP 139/81
--- NOTE | 2021-08-17 12:29 | PN ---
DATE: 08/17/2021 ATTENDING PHYSICIAN: Dr. Escalante. SUBJECTIVE: The patient remains very weak. He is hard of hearing. He has hearing aids. He is very shaky, with purposeful movement, with essential tremor. He is still weak and nonambulatory. He needs 2:1 for assistance just to transfer. OBJECTIVE FINDINGS: VITAL SIGNS: Blood pressure this morning is 116/68 mmHg, pulse is 60 and regular. He is afebrile. Oxygen saturation 97% on room air. HEENT: Head is without trauma. Pupils are reactive. Sclerae nonicteric. Oropharynx clear. NECK: Supple. LUNGS: Clear to auscultation. CARDIOVASCULAR: Showed regular heart tones. No gallop. ABDOMEN: Soft. EXTREMITIES: Without edema. NEUROLOGIC: The patient still has profound weakness of the lower extremities at 3+/5 on the right and 4+/5 on the left. ASSESSMENT: 1. A 75-year-old gentleman with recent prostate surgery. He had symptoms of systemic inflammatory response syndrome on admission. 2. Prostatitis. 3. History of previous nephrectomy 11 years ago. 4. Chronic kidney disease. 5. Frequent mechanical falls. 6. Generalized debilitation. 7. Essential hypertension, currently normotensive. PLAN: 1. Continue medications as ordered. 2. Physical therapy to see. 3. He is agreeable to go to rehabilitation. Unfortunately, this is the weekend and most likely they will not be available to take him at the earliest until Friday. He is aware of that fact. KEVIN/DHARA/KAREN DR: KEVIN/alice TID: [id number] CC: Jonny Jimenez MD
[2021-08-17 15:19] VITALS: BP 150/80
[2021-08-17] MEDS: TEMAZEPAM 15 MG CAPSULE PO PRN (16:20)
[2021-08-17] MEDS: ACETAMINOPHEN 325 MG TABLET PO PRN ×2 (16:22→21:01)
[2021-08-17 20:34] VITALS: BP 127/75
[2021-08-17] MEDS: PRIMIDONE 50 MG TABLET PO SCH (21:02)
--- NOTE | 2021-08-17 21:52 | PN ---
SUBJECTIVE: The patient denies any new medical or neurological complaints. He continues to complain of generalized weakness. He has not had any falls since admission. He also complains of numbness and paresthesia of the hands. OBJECTIVE: GENERAL: Well-developed, well-nourished male in no acute distress. VITAL SIGNS: Blood pressure 139/81, respiratory rate 16, pulse is 54, oxygen saturation is 96% on room air and temperature is 97.7. HEENT: Normocephalic, atraumatic. otherwise unremarkable. NECK: Supple. Negative for carotid bruit, lymphadenopathy or thyromegaly. LUNGS: Clear to A and P. CARDIOVASCULAR: Regular rhythm. Normal S1, S2. There is a 3/6 systolic murmur. ABDOMEN: Soft. EXTREMITIES: Negative for cyanosis, clubbing or pedal edema. NEUROLOGIC: Mental status: The patient is alert and oriented x3. The speech is fluent. There is no language dysfunction. Motor exam: No focal muscle bulk wasting. The tone is normal. The strength is 4/5 throughout. The patient has postural and kinetic tremors of both hands, which is less severe than yesterday. Sensory examination revealed a diminished pinprick and light touch senses in stocking distributions. Deep tendon reflexes were symmetric and hypoactive with absent Achilles responses bilaterally. Gait not tested. IMPRESSION: 1. Generalized weakness and frequent falls along with impaired balance, probably multifactorial including previous history of stroke in the basal ganglia bilaterally and severe peripheral neuropathy in the lower extremities. However, lumbosacral radiculopathy should be ruled out. 2. Status post recent transurethral resection of the prostate with history of prostatic enlargement and prostatitis. 3. Multiple medical problems include urinary tract infections, osteoarthritis of the spine and joints in the lower extremities. 4. 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 RECOMMENDATIONS: 1. Continue with current management initiated by Dr. Escalante. 2. Increase primidone to 100 mg at bedtime. 3. We will arrange to follow up with Dr. Caceres on outpatient basis in [facility]rology [facility] for EMG/NCS of the lower extremities. 4. The patient is awaiting for transfer to [place] for rehabilitation. CAROLIN DR: Raivnder TID: [id number]
[2021-08-17 23:31] VITALS: BP 120/72
[2021-08-18 06:44] VITALS: BP 156/90
[2021-08-18 08:25] LABS: CALCIUM 8.3 mg/dL (8.5-10.1); CREATININE 1.6 mg/dL (0.7-1.3); GFR 42.5
--- NOTE | 2021-08-18 08:26 | PN ---
DATE: 08/18/2021 ATTENDING PHYSICIAN: Dr. Escalante. SUBJECTIVE: No new complaints. He is still bedridden. He requires quite a bit of help, 2:1 for transfer. He is deaf. His hearing aids are not working. OBJECTIVE FINDINGS: VITAL SIGNS: Blood pressure this morning is 150/90, his pulse is 60 and regular. He is afebrile and his oxygen saturation are 97% on room air. HEENT: Head is without trauma. Pupils are reactive. Sclerae nonicteric. The oropharynx is clear. NECK: Supple, no bruits. LUNGS: Good breath sounds. CARDIOVASCULAR: Showed regular heart tones. ABDOMEN: Soft. EXTREMITIES: Without edema. NEUROLOGIC: Function unchanged. He remains quite weak and nonambulatory, unable to bear weight. ASSESSMENT: 1. Generalized weakness and frequent falls with impaired balance. 2. Chronic kidney disease. He has a unilateral kidney with a previous nephrectomy 11 years ago. 3. Essential hypertension. 4. Profound presbycusis. 5. Generalized debilitation. 6. Admission diagnosis of systemic inflammatory response syndrome, improved on current antibiotic therapy. PLAN: 1. Continue antibiotics as ordered. 2. Recs per Neurology. 3. We are awaiting placement at a rehab facility. This will not occur the earliest until Friday because of the holiday weekend. SAUMYA DR: KEVIN/alice TID: [id number]
[2021-08-18] MEDS: LACTOBACILLUS RHAMNOSUS GG 1 CAPSULE. PO SCH ×2 (09:11→20:30)
[2021-08-18] MEDS: FINASTERIDE 5 MG TABLET. PO SCH (09:11)
[2021-08-18] MEDS: ATENOLOL 50 MG TABLET PO SCH (09:11)
[2021-08-18] MEDS: CITALOPRAM 20 MG TABLET. PO SCH (09:11)
[2021-08-18] MEDS: DONEPEZIL HCL 5 MG TABLET. PO SCH (09:11)
[2021-08-18] MEDS: TAMSULOSIN 0.4 MG CAP.ER.24H. PO SCH (09:11)
[2021-08-18] MEDS: ALLOPURINOL 300 MG TABLET. PO SCH (09:12)
[2021-08-18] MEDS: ACETAMINOPHEN 325 MG TABLET PO PRN ×2 (09:13→15:59)
[2021-08-18 11:14] VITALS: BP 156/85
[2021-08-18 15:08] VITALS: BP 142/78
--- NOTE | 2021-08-18 17:09 | PN ---
DATE: 08/18/2021 SUBJECTIVE: The patient denies any new medical or neurological complaints. He continues to have generalized weakness, tremor of the upper extremities and hearing loss. OBJECTIVE: GENERAL: A well-developed, well-nourished male in no acute distress. VITAL SIGNS: Blood pressure 156/85, respiratory rate 18, pulse is 57, temperature is 98.7, oxygen saturation 94% on room air. HEENT: Normocephalic, atraumatic. Otherwise unremarkable. NECK: Supple. Negative for carotid bruit, lymphadenopathy, thyromegaly. LUNGS: Clear to A and P. CARDIOVASCULAR: Regular rate and rhythm. Normal S1, S2. There is a 3/6 systolic murmur. ABDOMEN: Soft. Bowel sounds positive. EXTREMITIES: Negative for cyanosis, clubbing or pedal edema. NEUROLOGIC: Mental status: The patient is alert and oriented x 2. The speech is fluent. There is no language dysfunction. Memory, judgment and abstracting thinking are fair. The patient denies hallucination or delusion. Cranial nerves are intact. Motor exam: No focal muscle bulk wasting. The tone is normal. The strength is 4/5 throughout. The patient has postural, kinetic tremors of both upper extremities. Sensory examination revealed diminished pinprick and light touch senses in stocking distributions bilaterally. Deep tendon reflexes were asymmetric and hypoactive with absent Achilles responses bilaterally. GAIT: The patient uses a walker for transferring from bed to bathroom. IMPRESSION: 1. Generalized weakness and frequent falls, likely multifactorial including history of previous stroke with abnormal CT scan consistent with bilateral basal ganglia lacunar infarcts, lumbosacral radiculopathy versus peripheral neuropathy due to underlying diabetes mellitus. 2. Multiple medical problems include urinary tract infections, status post transurethral resection of the prostate, osteoarthritis of the lumbar spine and the joints in the lower extremities, essential or familial tremor of the upper extremities. RECOMMENDATIONS: 1. We will continue with current management initiated by Dr. Escalante for systemic infections. 2. Continue with primidone 100 mg at bedtime. 3. Await for transfer for 2 weeks' rehabilitation in [place]. 4. The patient should come back to [facility] Clinic in [place] and follow up with Dr. Caceres on outpatient basis and arrange for EMG/NCS of the lower and upper extremities. YEIMI/RICARDO/KAREN DR: YEIMI/alice TID: [id number]
[2021-08-18 19:41] VITALS: BP 164/94
[2021-08-18] MEDS: MEROPENEM 1 GM in IV NORMAL SALINE 100ML 100 ML IV SCH (20:30)
[2021-08-18] MEDS: TEMAZEPAM 15 MG CAPSULE PO PRN (20:30)
[2021-08-18] MEDS: oxyCODONE/APAP 7.5/325 1 TAB TABLET PO PRN (20:30)
[2021-08-18] MEDS: PRIMIDONE 50 MG TABLET PO SCH (20:30)
[2021-08-18 22:35] VITALS: BP 133/75
[2021-08-19] MEDS: oxyCODONE/APAP 7.5/325 1 TAB TABLET PO PRN ×4 (02:03→22:36)
[2021-08-19 05:13] VITALS: BP 143/70
[2021-08-19 06:45] LABS: CALCIUM 8.3 mg/dL (8.5-10.1); CREATININE 1.7 mg/dL (0.7-1.3); GFR 39.6; POTASSIUM 3.8 mmol/L (3.5-5.1)
--- NOTE | 2021-08-19 08:18 | PN ---
DATE: 08/19/2021 ATTENDING PHYSICIAN: Dr. Escalante. SUBJECTIVE: He is feeling much better today. He is stronger. He is able to lift both his legs up against gravity and strength is up to 4-1/2/5. He is still weak and unable to bear weight, today is a good day. He has no new complaints. OBJECTIVE FINDINGS: VITAL SIGNS: Blood pressure this morning is 140/70 mmHg, pulse is 58 and regular. He is afebrile. Oxygen saturation 94% on room air. HEENT: Head is without trauma. Pupils are reactive. Sclerae are nonicteric. Oropharynx clear. NECK: Supple, no bruits. LUNGS: Clear. CARDIOVASCULAR: Showed regular heart tones. ABDOMEN: Soft. EXTREMITIES: Without edema. NEUROLOGIC: Function again 4-1/2/5 strength in both right and left legs. LABORATORY DATA: Pertinent laboratory studies, repeat BUN is 29 mg/dL, creatinine 1.7 mg% given his solitary kidney. Potassium 3.8 mEq. ASSESSMENT: 1. A 75-year-old gentleman with significant peripheral neuropathy, unable to bear weight and frequent falls. 2. Chronic kidney disease with previous nephrectomy 10 years ago for renal cell cancer. 3. Essential hypertension, currently normotensive. 4. Profound presbycusis. He is hearing better now as his hearing aids had been recharged. 5. Systemic inflammatory response syndrome, improved on current antibiotics. His blood cultures were negative after 3 days. The urine culture grew greater than 100,000 colonies of Klebsiella and drug-resistant E. coli. This may be a contaminant given the fact that he has an indwelling Angel catheter. PLAN: 1. Edgar per Neurology. 2. Edgar per physical therapy. 3. Antibiotics were adjusted. He is currently getting meropenem 1 gram twice a day. In lieu of the Rocephin, we will try to select ____ oral antibiotic at time of discharge. Tentative plans again to go to a rehab, hopefully at [place] when the bed is available. SAUMYA DR: Gabby TID: [id number] CC: Dr. Jonny Jimenez
[2021-08-19] MEDS: MEROPENEM 1 GM in IV NORMAL SALINE 100ML 100 ML IV SCH ×2 (08:55→20:35)
[2021-08-19] MEDS: DONEPEZIL HCL 5 MG TABLET. PO SCH (08:57)
[2021-08-19] MEDS: LACTOBACILLUS RHAMNOSUS GG 1 CAPSULE. PO SCH ×2 (08:57→20:34)
[2021-08-19] MEDS: FINASTERIDE 5 MG TABLET. PO SCH (08:57)
[2021-08-19] MEDS: ATENOLOL 50 MG TABLET PO SCH (08:57)
[2021-08-19] MEDS: ALLOPURINOL 300 MG TABLET. PO SCH (08:58)
[2021-08-19] MEDS: CITALOPRAM 20 MG TABLET. PO SCH (08:58)
[2021-08-19] MEDS: TAMSULOSIN 0.4 MG CAP.ER.24H. PO SCH (09:00)
[2021-08-19 10:00] VITALS: BP 145/78
[2021-08-19 15:00] VITALS: BP 129/71
[2021-08-19 20:06] VITALS: BP 164/88
[2021-08-19] MEDS: PRIMIDONE 50 MG TABLET PO SCH (20:34)
[2021-08-19] MEDS: TEMAZEPAM 15 MG CAPSULE PO PRN (20:34)
--- NOTE | 2021-08-19 20:37 | PN ---
SUBJECTIVE: The patient denies any new medical or neurological complaints. He continues to have a tremor of the upper extremities, weakness, numbness and paresthesia of the legs. OBJECTIVE: GENERAL: Well-developed, well-nourished male in no acute distress. VITAL SIGNS: Blood pressure 145/78, respiratory rate 18, pulse is 57, temperature is 98.4, oxygen saturation is 92% on room air. HEENT: Normocephalic, atraumatic. Otherwise unremarkable. NECK: Supple, negative for carotid bruit, lymphadenopathy or thyromegaly. LUNGS: Clear to A and P. CARDIOVASCULAR: Regular rate and rhythm. Normal S1, S2. There is a 3/6 systolic murmur. ABDOMEN: Soft. Bowel sounds positive. EXTREMITIES: Negative for cyanosis, clubbing or pedal edema. NEUROLOGIC: The patient is alert and oriented x 2. Speech is fluent. There is no language dysfunction. Memory, judgment and abstracting thinking are fair. The patient denies hallucination or delusion. Cranial nerves are intact. Motor examination revealed no focal muscle bulk wasting. The tone is normal. The strength is 4/5 throughout. Sensory examination revealed a diminished pinprick and light touch senses in stocking distributions. Deep tendon reflexes were symmetric and hypoactive with absent Achilles responses bilaterally. Gait, the patient ambulates using a walker. IMPRESSION: 1. Generalized weakness, probably multifactorial as mentioned before. 2. Status post prostatitis/urinary tract infections and transurethral resection of the prostate. 3. Multiple medical problems includes lumbosacral radiculopathy, chronic low back pain, positive for severe peripheral neuropathy and advanced osteoarthritis of the spine and the joints in the lower extremities. 4. Postural and kinetic tremor, likely represent essential/familial tremor. RECOMMENDATIONS: 1. Continue with current management initiated by Dr. Escalante. 2. We will increase primidone to 50 mg 1 tablet noon and 2 tablets at bedtime. 3. The patient will be transferred to [place] to move rehabilitation. 4. Follow up with Dr. Caceres after finishing rehabilitation. CAROLIN DR: Ravinder TID: [id number]
[2021-08-19 23:12] VITALS: BP 154/77
[2021-08-20] MEDS: oxyCODONE/APAP 7.5/325 1 TAB TABLET PO PRN ×2 (04:50→11:22)
[2021-08-20 05:05] VITALS: BP 155/88
[2021-08-20] MEDS: FINASTERIDE 5 MG TABLET. PO SCH (08:29)
[2021-08-20] MEDS: LACTOBACILLUS RHAMNOSUS GG 1 CAPSULE. PO SCH (08:29)
[2021-08-20] MEDS: ATENOLOL 50 MG TABLET PO SCH (08:30)
[2021-08-20] MEDS: TAMSULOSIN 0.4 MG CAP.ER.24H. PO SCH (08:30)
[2021-08-20] MEDS: DONEPEZIL HCL 5 MG TABLET. PO SCH (08:30)
[2021-08-20] MEDS: CITALOPRAM 20 MG TABLET. PO SCH (08:30)
[2021-08-20] MEDS: ALLOPURINOL 300 MG TABLET. PO SCH (08:30)
--- NOTE | 2021-08-20 08:32 | PN ---
DATE: 08/20/2021 ATTENDING PHYSICIAN: Dr. Escalante. SUBJECTIVE: The patient is alert. He is comfortable. We had the Angel catheter removed. He was good for 6 hours, then he started having urinary retention. The Angel had to be reinserted. OBJECTIVE FINDINGS: VITAL SIGNS: Blood pressure 155/88, pulse is 56 and regular. He is afebrile, oxygen saturation 95% on room air. HEENT: Head is without trauma. Pupils are reactive. Sclerae nonicteric. Oropharynx is clear. NECK: Supple, no bruits. LUNGS: Clear. CARDIOVASCULAR: Regular heart tones. No gallop. ABDOMEN: Soft. EXTREMITIES: Show 4+/5 strength. Trace edema. NEUROLOGIC: Function focally intact. SKIN: Warm and dry. ASSESSMENT: 1. A 75-year-old gentleman with profound weakness due to peripheral neuropathy. 2. Urinary retention with recent prostate surgery. He still requires an indwelling Angel catheter. 3. Chronic kidney disease with a previous nephrectomy and unilateral kidney. 4. Essential hypertension. 5. Profound presbycusis. 6. Systemic inflammatory response syndrome on admission, improved with antibiotics. PLAN: 1. We are awaiting placement. 2. Recs per Neurology. 3. Recs per Physical Therapy. 4. Continue antibiotics as ordered. 5. Angel catheter replaced. KEVIN/DHARA DR: Gabby TID: [id number] CC: Jonny Jimenez MD
[2021-08-20] MEDS: MEROPENEM 1 GM in IV NORMAL SALINE 100ML 100 ML IV SCH (08:33)
[2021-08-20] MEDS ORDERED: LIDOCAINE 2% JELLY 6ML IN APPLICATOR. MM ONE (10:15)
[2021-08-20 11:21] VITALS: BP 145/76
[2021-08-20] MEDS ORDERED: PRIMIDONE 50 MG TABLET PO SCH (12:00)
--- NOTE | 2021-08-20 20:18 | DS ---
DATE OF DISCHARGE: 08/20/2021 ATTENDING PHYSICIAN: Dr. Escalante. FINAL DISCHARGE DIAGNOSES: 1. Systemic inflammatory response syndrome related to recent prostate surgery. 2. Profound weakness due to peripheral neuropathy. 3. Urinary retention with recent prostate surgery. 4. Chronic kidney disease with previous nephrectomy and unilateral kidney. 5. Essential hypertension. 6. Profound presbycusis HISTORY OF PRESENT ILLNESS: The patient is a 75-year-old gentleman admitted to the ED with profound weakness. He is falling at home. He cannot bear weight. He had a recent prostate procedure, resulting in indwelling Angel catheter. Clinically, he had systemic inflammatory response syndrome. He was admitted for further treatment, IV antibiotics and fluids. PHYSICAL EXAMINATION: Please see my dictated note. PERTINENT LABORATORY AND X-RAY STUDIES: Admission hemoglobin was 11.1 g/dL with a white count 11,600. Chemistry panel shows a creatinine, which is baseline for him at 1.6 mg/dL, BUN was 38, repeat was down to 29. Potassium was adequate at 4.1 mEq. Lactic acid was normal. In the ED, he had imaging studies, which showed a head and neck CT spine, which showed no evidence of intracranial abnormalities. He has moderate cerebral volume loss, chronic microvascular changes, old lacunar infarcts, also cervical spine degenerative disk disease. Please refer to the cervical spine films. COURSE IN THE HOSPITAL: The patient was admitted. Cultures were drawn. He grew several bacteria including multidrug resistant E. coli as well as Klebsiella species. He did receive 6 days of intravenous antibiotics with marked improvement. Serial chemistries were drawn. Neurology consultation was obtained. Dr. Caceres's recommendation is on the chart. He is familiar with him. He has agreed to go to subacute rehabilitation. We had to keep him here over the long holiday weekend. On the sixth hospital day, arrangements were made for him to go to [facility]. His discharge meds are as follows: Because of the multidrug resistance, we chose another week's worth of Macrobid 100 mg p.o. b.i.d. In addition, he will continue his Aricept 5 mg daily, Flomax 0.4 mg daily, Lipitor 10 mg daily, atenolol 100 mg p.o. daily, lisinopril 20 mg daily, Mysoline 1 tablet at bedtime, Neurontin 300 mg t.i.d., Lexapro 20 mg p.o. daily, Restoril 30 mg at bedtime and Percocet 7.5 mg p.o. every 6 hours p.r.n. pain, finasteride 5 mg daily, allopurinol 300 mg p.o. daily. His prognosis is fair. He still had a Angel catheter intact. We tried to take this out prior to discharge. He lasted about 6 hours, but continued to have urinary retention. We had to reinsert the Angel catheter. Therefore, on the sixth hospital day, the patient was discharged from our hospital in stable condition to go to subacute rehab facility at the [facility]. He was in stable condition with explicit drug and followup care. Total discharge time spent is [address]: Gabby TID: [id number] CC: Dr. Jonny Jimenez
--- NOTE | 2021-08-20 23:24 | PN ---
DATE: 08/20/2021 SUBJECTIVE: The patient denies any new medical or neurological complaints; however, he continued to have numbness and paresthesia of the lower extremities resulting in frequent falls. The patient has been ambulated using a walker. OBJECTIVE: GENERAL: Well-developed, well-nourished male, not in acute distress. VITAL SIGNS: Blood pressure 145/76, respiratory rate 18, pulse is 58, oxygen saturation is 95%, and temperature is 98.4. HEENT: Normocephalic, atraumatic, otherwise unremarkable. NECK: Supple, negative for carotid bruit, lymphadenopathy or thyromegaly. LUNGS: Clear to A and P. CARDIOVASCULAR: Regular rate and rhythm. Normal S1, S2. ABDOMEN: Soft. Bowel sounds positive. EXTREMITIES: Negative for cyanosis, clubbing or pedal edema. NEUROLOGIC: Mental status: The patient is alert and oriented x 2. The speech is fluent. There is no language dysfunction. Memory, judgment and abstracting thinking are fair. The patient denies hallucination or delusion. Cranial nerves are intact except for bilateral hearing loss. Motor exam: No focal muscle bulk wasting. The strength is 4/5 throughout. Sensory examination revealed diminished pinprick and light touch senses in stocking distributions. Deep tendon reflexes were symmetric and hypoactive with absent Achilles responses. Gait: The patient uses a walker for ambulation. IMPRESSION: 1. Generalized weakness, probably multifactorial as outlined above. 2. Status post urinary tract infection, prostatitis and transurethral resection of the prostate. 3. Multiple medical problems include lumbosacral radiculopathy, chronic lower back pain, peripheral neuropathy and advanced osteoarthritis. 4. Postural and kinetic tremor, likely represents essential tremor. RECOMMENDATIONS: 1. Continue with current management initiated by Dr. Escalante. 2. The patient to increase the primidone to 50 mg 1 tablet at noon and 2 tablets at bedtime. 3. The patient will be transferred for rehabilitation. 4. Follow up with Dr. Caceres after finishing rehabilitation to his neurologic clinic in [place] and arrange for EMG/NCS of the upper and lower extremities. YEIMI/THOMAS DR: YEIMI/alice TID: [id number]
== END 2021-08-20 15:45 | DRG 74 ==
LOC: ER 07:35 → 1 SOUTH 14:46
PROVIDERS: ADMIT Hospitalist; ATTEND Hospitalist
DX: E11.42 Type 2 diabetes mellitus with diabetic polyneuropathy (principal); R65.10 Systemic inflammatory response syndrome (SIRS) of non-infectious origin without acute organ dysfunction; N39.0 Urinary tract infection, site not specified; Z16.24 Resistance to multiple antibiotics; I13.0 Hypertensive heart and chronic kidney disease with heart failure and stage 1 through stage 4 chronic kidney disease, or unspecified chronic kidney disease; W18.30XA Fall on same level, unspecified, initial encounter; Z04.3 Encounter for examination and observation following other accident; Y84.6 Urinary catheterization as the cause of abnormal reaction of the patient, or of later complication, without mention of misadventure at the time of the procedure; N18.9 Chronic kidney disease, unspecified; N40.0 Benign prostatic hyperplasia without lower urinary tract symptoms; M54.17 Radiculopathy, lumbosacral region; R29.6 Repeated falls; L97.529 Non-pressure chronic ulcer of other part of left foot with unspecified severity; I50.9 Heart failure, unspecified; I25.10 Atherosclerotic heart disease of native coronary artery without angina pectoris; G89.29 Other chronic pain; G62.9 Polyneuropathy, unspecified; E11.621 Type 2 diabetes mellitus with foot ulcer; E11.22 Type 2 diabetes mellitus with diabetic chronic kidney disease; E03.9 Hypothyroidism, unspecified; G25.0 Essential tremor; B96.20 Unspecified Escherichia coli [E. coli] as the cause of diseases classified elsewhere; H91.10 Presbycusis, unspecified ear; M47.816 Spondylosis without myelopathy or radiculopathy, lumbar region; R26.81 Unsteadiness on feet; R41.3 Other amnesia; N41.9 Inflammatory disease of prostate, unspecified; R53.81 Other malaise; B96.1 Klebsiella pneumoniae [K. pneumoniae] as the cause of diseases classified elsewhere; R62.7 Adult failure to thrive; Z20.822 Contact with and (suspected) exposure to COVID-19; Y93.89 Activity, other specified; Y92.89 Other specified places as the place of occurrence of the external cause; Z91.81 History of falling; Z90.5 Acquired absence of kidney; Z87.891 Personal history of nicotine dependence; Z86.73 Personal history of transient ischemic attack (TIA), and cerebral infarction without residual deficits; Z85.528 Personal history of other malignant neoplasm of kidney; Z79.899 Other long term (current) drug therapy; Z74.01 Bed confinement status; Z68.26 Body mass index [BMI] 26.0-26.9, adult; Z90.79 Acquired absence of other genital organ(s); Z87.440 Personal history of urinary (tract) infections; Z88.1 Allergy status to other antibiotic agents; Z88.2 Allergy status to sulfonamides; Z82.49 Family history of ischemic heart disease and other diseases of the circulatory system
CPT/HCPCS: 36415; 70450; 71045; 72125; 73630; 80048; 80053; 81001; 82550; 83605; 83735; 84100; 84484; 85025; 87040; 87077; 87086; 87186; 87426; 93005; 96361; 96365; J0696; J2185; U0003; 97110; 97116; 97530; 97535; 99285-25; J7030